=== PATIENT | female | born 1930 | race Caucasian/White ===

== ENCOUNTER → 2016-07-25 | Outpatient (CLI) | payer BC ==
[~2016-07-25] MED LIST: ACET1TAB84 PO; AMOX1TAB43 PO; APR50 PO; CALC-393 PO; CALCTAB5 PO; DOCU100C31 PO; ERGO1CAP35 PO; FERR325T5 PO; FURO-85 PO; HMLI SC; INSDGI SC; INSU100I2 SC; LEVO125T4 PO; LEVO175T3 PO; LSX80 PO; MELA3CAP PO; METO-551 PO; MRLP17X; MULT-190 PO; NRV5 PO; OMEG10007 PO; OMEP20CA9 PO; POTA10CA28 PO; SENN8.6T15 PO; SERT50TA PO; SIMV40TA2 PO; TRAM-10 PO; XRL15 PO; ZLF/50 PO; levoxyl PO
== END | disposition home or self-care (01) ==
LOC: C.LABSPEC 16:43
PROVIDERS: ATTEND Internal Medicine
DX: B99.9 Unspecified infectious disease (principal)

== ENCOUNTER → 2016-08-13 | Outpatient (CLI) | payer BC | END | disposition home or self-care (01) | LOC: C.LABSPEC 08:24 | PROVIDERS: ATTEND Internal Medicine | DX: E04.2 Nontoxic multinodular goiter (principal) ==

== ENCOUNTER → 2016-09-01 | Outpatient (CLI) | payer BC ==
[2016-09-01 17:26] LABS: BASO % 0.7 %; BASO ABS # 0.07 K/uL (0-0.2); COMPLETE YES; EOS % 0.6 %; HEMATOCRIT 29.9 % (37-47); IG% 0.2 %; LYMPH % 10.7 %; LYMPH ABS # 1.02 K/uL (1.2-3.4); MEAN CORPUSCULAR HEMOGLOBIN 25.3 pg (25-34); MEAN CORPUSCULAR HGB CONC 30.1 g/dl (32-36); MEAN PLATELET VOLUME 9.7 fL (7.4-10.4); MONO % 8.5 %; NEUT % 79.3 %; PLATELET COUNT 352 K/uL (130-400); RED BLOOD COUNT 3.56 M/uL (4.2-5.4); WHITE BLOOD COUNT 9.51 K/uL (4.8-10.8)
[2016-09-01 17:39] LABS: INR 1.1 (0.9-1.1); PROTHROMBIN TIME (PATIENT) 11.6 SECONDS (9.0-12.0)
[2016-09-01 17:48] LABS: ALT/SGPT 14 U/L (12-78); BLOOD UREA NITROGEN 21 mg/dl (7-18); BUN/CREATININE RATIO 14.2 (10-20); CALCIUM 8.4 mg/dl (8.5-10.1); CARBON DIOXIDE 26 mmol/L (21-32); CHLORIDE 104 mmol/L (98-107); GLUCOSE 163 mg/dl (70-99); POTASSIUM 4.5 mmol/L (3.5-5.1); SODIUM 140 mmol/L (136-145)
[2016-09-01 17:56] LABS: ALB/GLOB RATIO 0.6 (0.9-2); ALKALINE PHOSPHATASE 81 U/L (45-117); AST/SGOT 16 U/L (15-37); FERRITIN 57.5 ng/ml (8.0-388.0); TOTAL IRON BINDING CAPACITY 249 mcg/dl (250-450)
== END | disposition home or self-care (01) ==
LOC: C.LABBFT 12:37
PROVIDERS: ATTEND Internal Medicine Nephrology
DX: I48.91 Unspecified atrial fibrillation (principal); I12.9 Hypertensive chronic kidney disease with stage 1 through stage 4 chronic kidney disease, or unspecified chronic kidney disease; K21.9 Gastro-esophageal reflux disease without esophagitis; D64.9 Anemia, unspecified; R60.9 Edema, unspecified; N18.3 Chronic kidney disease, stage 3 (moderate); E55.9 Vitamin D deficiency, unspecified; E04.2 Nontoxic multinodular goiter; R53.83 Other fatigue

== ENCOUNTER → 2016-09-02 | Outpatient (CLI) | payer BC ==
--- NOTE | 2016-09-12 13:38 | CODING QUERY NO DIAGNOSIS ---
TREATMENT RENDERED WITHOUT A DIAGNOSIS To promote full compliance with coding requirements relating to patient care, physician participation is requested in all cases of heel lift gouger uncertainty. Please assist us with providing a diagnosis/symptom for the test(s) below: A diagnosis/symptom was not documented on your Order. A valid diagnosis/symptom is required to bill all insurances. Please remember that we are unable to code a diagnosis of rule out, probable, possible, questionable, or suspected. Tests that require a diagnosis: * URINE CULTURE CLEAN CATCH DIAGNOSIS: Provider Signature: Date: Thank you Mayte Ward [facility] Information Management Once completed, please kindly fax back to [phone] For questions please call [phone]
== END | disposition home or self-care (01) ==
LOC: C.LABSPEC 14:39
PROVIDERS: ATTEND Internal Medicine
DX: R53.83 Other fatigue (principal)

== ENCOUNTER 2016-09-03 13:31 | Inpatient (IN) | payer BC, OTHER ==
[~2016-09-03] VITALS: Ht 167.6 cm; Wt 119.7 kg
[~2016-09-03 13:31] MED LIST changes: -AMOX1TAB43 PO; -CALC-393 PO; -INSU100I2 SC; -LEVO175T3 PO; -LSX80 PO; -NRV5 PO; -POTA10CA28 PO; -ZLF/50 PO; -levoxyl PO
--- NOTE | 2016-09-03 14:49 | DIAGNOSTIC IMAGING REPORT ---
SINGLE VIEW CHEST CLINICAL HISTORY: Generalized weakness. FINDINGS: An AP, portable, upright chest radiograph is compared to study dated 03/23/2016 and correlated with chest CT dated 06/03/2016. The examination is degraded by portable technique, large body habitus, and patient rotation. The heart is enlarged and there is atherosclerotic calcification of the thoracic aorta. The pulmonary vasculature is noncongested. There is a left pleural effusion and bibasilar consolidation. The upper lobes appear Clear. No pneumothorax is seen. The skeletal structures are osteopenic. The bony thorax is grossly intact. IMPRESSION: 1. Cardiomegaly without radiographic evidence of congestive failure. 2. There is a left pleural effusion and bibasilar consolidation. Although this could represent atelectasis, correlate clinically for evidence of pneumonia/aspiration pneumonitis. Radiographic follow-up to resolution is recommended. Electronically signed by: Vince Calderon M.D. 09/03/2016 2:47 PM Dictated Date/Time: 09/03/2016 2:46 PM
--- NOTE | 2016-09-03 14:59 | EMERGENCY ROOM VISIT NOTE ---
History First contact with patient: 14:11 Chief Complaint: WEAKNESS Stated Complaint: WEAKNESS Nursing Triage Summary: patient to ED via ALS from [facility], per staff patient has been weaker than normal. Patient denies complaints at time of triage. History of Present Illness The patient is a 86 year old female who last March was admitted for a stroke from a fib, received tPA, and is on Xarelto. She lives in the Assisted living section of [facility]. The patient reports feeling fine and isn't sure why she is here. On discussion with the staff at [facility] (Phone #[phone], [facility]) they report she is usually very independent but has had a decline since yesterday. She was apparently very sleepy, taking longer naps than usual, and more confused. She was apparently struggling to find her ID card which normally she can do quickly. Today she was a full assist to get dressed, had episodes of staring off into space, and confusion. They asked her to give a urine sample for them but she forgot. Her appetite has also decreased. The patient reports she had a bowel movement this morning. Denies any change to her stool color. She denies any current pain. She is oriented to person and place but not time. Review of Systems See HPI for pertinent positives & negatives. A total of 10 systems reviewed and were otherwise negative. Past Medical/Surgical History Medical Problems: (1) Acute post-hemorrhagic anemia (2) Atrial fibrillation (3) Cellulitis of both lower extremities (4) Coumadin toxicity (5) CVA (cerebral vascular accident) (6) Diabetes (7) Mediastinal adenopathy (8) Pneumonia Family History Noncontributory secondary to age Social History Smoking Status: Never Smoker Drug Use: none Marital Status: Housing Status: assisted living Occupation Status: retired Current/Historical Medications Scheduled Calcium Carbonate (Calcium), 1 TAB PO DAILY Docusate Sodium (Docusate Sodium), 1 CAP PO BID Ferrous Sulfate (Ferrous Sulfate), 325 MG PO QPM Fish Oil ([place]-3), 2 TAB PO BID Hydralazine HCl (Hydralazine HCl), 50 MG PO QID Insulin Glargine (Lantus), 8 UNIT SC QPM Insulin Lispro (Human) (Humalog Kwikpen), 10 UNIT SC BID Levothyroxine Sodium (Levothyroxine Sodium), 175 MCG PO QAM Metoprolol Tartrate (Lopressor), 100 MG PO BID Ocuvite Preservision (Ocuvite Preservision), 1 TAB PO BID Omeprazole (Prilosec), 20 MG PO DAILY Sennosides-Docusate Sodium (Sennalax-S), 1 TAB PO DAILY Sertraline HCl (Sertraline HCl), 1 TAB PO DAILY Simvastatin (Zocor), 40 MG PO QPM Tramadol (Ultram), 50 MG PO Q6HPRN Scheduled PRN Acetaminophen (Tylenol Arthritis Ext Rel), 650 MG PO Q8H PRN for Pain Miscellaneous Medications Polyethylene (Miralax) Allergies Coded Allergies: Codeine (Verified Adverse Reaction, Mild, nausea, 09/03/16) Hydralazine (Verified Adverse Reaction, Mild, leg cramps currently taking a lower dose without problems, 09/03/16) Oxycodone (Verified Adverse Reaction, Mild, nausea, 09/03/16) Statins (Verified Adverse Reaction, Mild, leg cramps lack of interest, ) takes simvastatin now Physical Exam Vital Signs Date Time Temp Pulse Resp B/P Pulse Ox O2 Delivery O2 Flow Rate FiO2 09/03/16 19:02 56 22 133/107 98 Room Air 09/03/16 18:01 68 24 09/03/16 17:59 180/91 09/03/16 17:51 191/99 09/03/16 17:40 52 09/03/16 17:31 54 27 09/03/16 17:29 184/109 09/03/16 17:01 49 17 95 09/03/16 16:58 186/81 09/03/16 16:41 73 20 188/97 95 Room Air 09/03/16 16:32 188/97 09/03/16 16:31 60 22 09/03/16 15:01 63 23 94 09/03/16 14:43 61 20 159/94 96 Room Air 70 174/73 09/03/16 14:43 174/73 09/03/16 14:42 159/94 09/03/16 14:42 94 Room Air 09/03/16 14:31 62 18 95 09/03/16 14:29 154/72 09/03/16 14:01 63 20 93 09/03/16 13:59 143/67 09/03/16 13:41 68 09/03/16 13:33 36.5 67 20 133/69 98 Room Air 09/03/16 13:33 133/69 Physical Exam GENERAL: Awake, alert, well appearing, no distress, somnolent. HENT: Normocephalic, atraumatic. EYES: PERRL. Normal conjunctiva. Sclera non-icteric. Fundi normal. EOMI NECK: Supple. No nuchal rigidity. FROM. RESPIRATORY: CTA CARDIAC: RRR. Extremities warm and well perfused. ABDOMEN: Soft, distended. No tenderness to palpation. No rebound or guarding. No masses. MUSCULOSKELETAL: Unremarkable. EXTREMITIES: Bilateral leg edema, covered in edward bandage, with some notable blisters on right leg. Erythematous to below knee bilaterally. Nontender to palpation. NEURO: Oriented to person and place but not time. No sensory or motor deficits noted. Gait normal. Speech normal. Cranial nerves two through 12 intact. No pronator drift. Negative Romberg. Normal rapid alternating movements. SKIN: Erythema below knee to above ankles bilaterally. LYMPH: No adenopathy. Medical Decision & Procedures Laboratory Results 09/03/16 15:31 Red Blood Count 3.88, Mean Corpuscular Volume 83.2, Mean Corpuscular Hemoglobin 25.8, Mean Corpuscular Hemoglobin Concent 31.0, Mean Platelet Volume 9.5, Neutrophils (%) (Auto) 79.2, Lymphocytes (%) (Auto) 11.1, Monocytes (%) (Auto) 8.4, Eosinophils (%) (Auto) 0.7, Basophils (%) (Auto) 0.4, Neutrophils # (Auto) 7.69, Lymphocytes # (Auto) 1.08, Monocytes # (Auto) 0.82, Eosinophils # (Auto) 0.07, Basophils # (Auto) 0.04 09/03/16 15:31 Test 09/03/16 15:31 White Blood Count 9.72 K/uL (4.8-10.8) Red Blood Count 3.88 M/uL (4.2-5.4) Hemoglobin 10.0 g/dL (12.0-16.0) Hematocrit 32.3 % (37-47) Mean Corpuscular Volume 83.2 fL (80-100) Mean Corpuscular Hemoglobin 25.8 pg (25-34) Mean Corpuscular Hemoglobin Concent 31.0 g/dl (32-36) Platelet Count 293 K/uL (130-400) Mean Platelet Volume 9.5 fL (7.4-10.4) Neutrophils (%) (Auto) 79.2 % Lymphocytes (%) (Auto) 11.1 % Monocytes (%) (Auto) 8.4 % Eosinophils (%) (Auto) 0.7 % Basophils (%) (Auto) 0.4 % Neutrophils # (Auto) 7.69 K/uL (1.4-6.5) Lymphocytes # (Auto) 1.08 K/uL (1.2-3.4) Monocytes # (Auto) 0.82 K/uL (0.11-0.59) Eosinophils # (Auto) 0.07 K/uL (0-0.5) Basophils # (Auto) 0.04 K/uL (0-0.2) RDW Standard Deviation 54.3 fL (36.4-46.3) RDW Coefficient of Variation 17.9 % (11.5-14.5) Immature Granulocyte % (Auto) 0.2 % Immature Granulocyte # (Auto) 0.02 K/uL (0.00-0.02) Prothrombin Time 12.0 SECONDS (9.0-12.0) Prothromb Time International Ratio 1.1 (0.9-1.1) Anion Gap 10.0 mmol/L (3-11) Est Creatinine Clear Calc Drug Dose 42.4 ml/min Estimated GFR () 43.6 Estimated GFR (Non- 37.6 BUN/Creatinine Ratio 14.3 (10-20) Calcium Level 8.2 mg/dl (8.5-10.1) Magnesium Level 1.7 mg/dl (1.8-2.4) Total Bilirubin 0.4 mg/dl (0.2-1) Aspartate Amino Transf (AST/SGOT) 17 U/L (15-37) Alanine Aminotransferase (ALT/SGPT) 13 U/L (12-78) Alkaline Phosphatase 77 U/L (45-117) Troponin I 0.023 ng/ml (0-0.045) Total Protein 6.3 gm/dl (6.4-8.2) Albumin 2.3 gm/dl (3.4-5.0) Globulin 4.0 gm/dl (2.5-4.0) Albumin/Globulin Ratio 0.6 (0.9-2) ECG Indication: altered mental status Rhythm: atrial flutter (59 bpm) Findings: other (variable block) ED Course 2:10: I evaluated the patient in room C12A. 2:18: I ordered a CBC, CMP, Troponin, EKG, and CXR. 2:52: I discussed the case with Dr Juarez. We ordered a CT head. 5:21: The [place] [facility] - Dr. Alfaro will evaluate the patient. Medical Decision 86 yo F with weakness and altered mental status - differential includes UTI, cellulitis, sepsis, pneumonia, and delirium. The patient had an IV placed and labs drawn. She was found to have a left sided effusion on a portable CXR so this was repeated with a two view CXR. Her Hb level was 10, which is higher than her usual lifetime hemoglobin level. Her creatinine level of 1.30 is similar to baseline. I attempted to get a urinalysis but this was not obtained. I ordered a urine catheterization, this is still pending. I called her care home and from their opinion the patient has had a steep decline in the last two days. They did not know her code status. At this point, it seems appropriate for the patient to be admitted for further workup. Impression Primary Impression: Cellulitis of both lower extremities Additional Impression: Pneumonia Departure Information Dispostion Being Evaluated By Hospitalist Condition GOOD [facility] Patient Instructions My [facility] Resident Tracking Resident Involvement: Resident Care Provided Care Provided: Adult ED Problem Qualifiers
[2016-09-03] MEDS ORDERED: CALC-393 PO (15:23)
[2016-09-03] MEDS ORDERED: INSDGI SC (15:23)
[2016-09-03] MEDS ORDERED: INSU100I2 SC (15:23)
[2016-09-03] MEDS ORDERED: ZLF/50 PO (15:24)
[2016-09-03] MEDS ORDERED: LEVO175T3 PO (15:24)
[2016-09-03] MEDS ORDERED: levoxyl PO (15:29)
--- NOTE | 2016-09-03 15:29 | DIAGNOSTIC IMAGING REPORT ---
CT SCAN OF THE BRAIN WITHOUT IV CONTRAST CLINICAL HISTORY: Generalized weakness. COMPARISON STUDY: CT of the brain dated 03/23/2016. MRI of the brain dated 03/24/2016. TECHNIQUE: Unenhanced axial CT scan of the brain is performed from the vertex to the skull base. CT DOSE: 537.48 mGy.cm FINDINGS: Brain parenchyma: There are age-related involutional changes noting moderate patchy subcortical and periventricular microangiopathic change. There is a septal malacia from a chronic right frontal infarct. There is no hemorrhage, mass effect, or evidence of acute territorial ischemia by CT criteria. Cruz-white matter is preserved. No extra-axial fluid collection is seen. Ventricles, sulci, cisterns: Prominent secondary to involutional change. Intracranial vasculature: There is atherosclerotic calcification of the cavernous carotid and vertebral arteries. Calvarium: Unremarkable. Sinuses and mastoids: The visualized paranasal sinuses are clear. The mastoid air cells are well pneumatized. Orbits: The bony orbits are grossly intact. There are bilateral ocular lens implants. IMPRESSION: Senescent changes and chronic right frontal infarct as above. There is no hemorrhage, mass effect, or evidence of acute territorial ischemia by CT criteria. Electronically signed by: Vince Calderon M.D. 09/03/2016 3:28 PM Dictated Date/Time: 09/03/2016 3:25 PM
[2016-09-03 15:41] LABS: BASO % 0.4 %; BASO ABS # 0.04 K/uL (0-0.2); COMPLETE YES; EOS % 0.7 %; HEMATOCRIT 32.3 % (37-47); IG% 0.2 %; LYMPH % 11.1 %; LYMPH ABS # 1.08 K/uL (1.2-3.4); MEAN CELL VOLUME 83.2 fL (80-100); MEAN CORPUSCULAR HEMOGLOBIN 25.8 pg (25-34); MEAN PLATELET VOLUME 9.5 fL (7.4-10.4); MONO % 8.4 %; NEUT % 79.2 %; PLATELET COUNT 293 K/uL (130-400); RED BLOOD COUNT 3.88 M/uL (4.2-5.4); WHITE BLOOD COUNT 9.72 K/uL (4.8-10.8)
[2016-09-03 15:49] LABS: INR 1.1 (0.9-1.1)
[2016-09-03 15:59] LABS: BUN/CREATININE RATIO 14.3 (10-20); CALCIUM 8.2 mg/dl (8.5-10.1); CREATININE 1.3 mg/dl (0.60-1.20); MAGNESIUM 1.7 mg/dl (1.8-2.4); POTASSIUM 4.4 mmol/L (3.5-5.1)
[2016-09-03 16:02] LABS: ALB/GLOB RATIO 0.6 (0.9-2)
--- NOTE | 2016-09-03 16:41 | DIAGNOSTIC IMAGING REPORT ---
CHEST 2 VIEWS ROUTINE CLINICAL HISTORY: L base ?aspiration vs pneumonia pneumonia COMPARISON STUDY: 09/03/2016 2:29 PM FINDINGS: Moderate cardiomegaly. Prominence pulmonary vasculature. Slightly progressive infiltrative/effusion-type change left base. IMPRESSION: Slightly progressive effusion/infiltrative change left base. Mild stable cardia megaly. Pulmonary vascular congestion. Electronically signed by: Abhijeet Archer M.D. 09/03/2016 4:39 PM Dictated Date/Time: 09/03/2016 4:38 PM
[2016-09-03] MEDS ORDERED: GLUCOSE 40% GEL 15 GM TUBE PO PRN (18:30)
[2016-09-03] MEDS ORDERED: TRAMADOL HCL 50 MG TAB PO PRN (18:30)
[2016-09-03] MEDS ORDERED: GLUCOSE 10 TABS/TUBE PO PRN (18:30)
[2016-09-03] MEDS ORDERED: DEXTROSE 50% 50 ML SYR IV PRN (18:30)
[2016-09-03] MEDS ORDERED: ZOLPIDEM TARTRATE 5 MG TAB PO PRN (18:30)
[2016-09-03] MEDS ORDERED: ACETAMINOPHEN 325 MG TAB PO PRN (18:30)
[2016-09-03] MEDS ORDERED: ONDANSETRON INJ 2 MG/ML 2 ML VIAL IV PRN (18:30)
[2016-09-03] MEDS ORDERED: GLUCAGON FOR INJ 1 MG VIAL SQ PRN (18:30)
[2016-09-03] MEDS ORDERED: VANCOMYCIN INJ 1,000 MG in SODIUM CHLORIDE 0.9% 250ML 250 ML IV STA (18:32)
[2016-09-03] MEDS ORDERED: PIPERACILL/TAZOBAC IV 4.5 GM in DEXTROSE 5% 100ML IV ONE (18:45)
[2016-09-03] MEDS ORDERED: PIPERACILLIN/TAZOBACTAM 4.5 GM/100ML D5W IV SCH (18:45)
--- NOTE | 2016-09-03 18:49 | Medical Student: [facility] ---
Med Student History & Physical Date & Time of Service: Sep 03, 2016 at 18:01 Chief Complaint: Weakness Primary Care Physician: Irineo Pena,Personal Care,Sera History of Present Illness Source: patient, family, group home 86y/o female living at [facility] presents with weakness and confusion that began yesterday. Prior to yesterday, the patient was very independent according to the assisted living staff. However, she needed a full assist to get dressed this morning and has been sleeping more as well as staring out into space. The patient's family also notices a difference, noting that the patient is having increased difficulty concentrating and difficulty moving around. The patient also has had a decreased appetite. Currently, the patient denies having any symptoms, including chest pain, palpitations, shortness of breath, abdominal pain, nausea, vomiting, constipation, diarrhea, and change in stool color. The patient has a history of stroke in February of 2016 presents with . Family states that following the stroke, she did not do much of her rehabilitation, and has subsequently gained a significant amount of weight. The patient takes Lasix for lower extremity edema. According to family, the assisted living facility was supposed to get a urine sample yesterday, but it was never collected. Past Medical/Surgical History Medical Problems: (1) CVA 2. A-Fib 3. Coumadin toxicity 4. post hemorrhagic anemia 5. Diabetes 6. Mediastinal Adenopathy 7. Hypertension Surgical History: 1. Knee replacement Social History Smoking Status: Never Smoker Alcohol Use: none Drug Use: none Marital Status: Housing status: assisted living Occupational Status: retired Immunizations History of Influenza Vaccine: N/A History of Tetanus Vaccine?: Unknown History of Pneumococcal: Yes History of Hepatitis B Vaccine: Unknown Allergies Coded Allergies: Codeine (Verified Adverse Reaction, Mild, nausea, 09/03/16) Hydralazine (Verified Adverse Reaction, Mild, leg cramps currently taking a lower dose without problems, 09/03/16) Oxycodone (Verified Adverse Reaction, Mild, nausea, 09/03/16) Statins (Verified Adverse Reaction, Mild, leg cramps lack of interest, ) takes simvastatin now Medications Acetaminophen (Tylenol Arthritis Ext Rel), 650 MG PO Q8H PRN for Pain Calcium Carbonate (Calcium), 1 TAB PO DAILY Docusate Sodium (Docusate Sodium), 1 CAP PO BID Ferrous Sulfate (Ferrous Sulfate), 325 MG PO QPM Fish Oil ([place]-3), 2 TAB PO BID Hydralazine HCl (Hydralazine HCl), 50 MG PO QID Insulin Glargine (Lantus), 8 UNIT SC QPM Insulin Lispro (Human) (Humalog Kwikpen), 10 UNIT SC BID Levothyroxine Sodium (Levothyroxine Sodium), 175 MCG PO QAM Metoprolol Tartrate (Lopressor), 100 MG PO BID Ocuvite Preservision (Ocuvite Preservision), 1 TAB PO BID Omeprazole (Prilosec), 20 MG PO DAILY Polyethylene (Miralax) Sennosides-Docusate Sodium (Sennalax-S), 1 TAB PO DAILY Sertraline HCl (Sertraline HCl), 1 TAB PO DAILY Simvastatin (Zocor), 40 MG PO QPM Tramadol (Ultram), 50 MG PO Q6HPRN Review of Systems Constitutional: + chills, No fever, No weakness, No weight loss Eyes: No discharge, No redness, No worsening of vision ENT: No hearing loss, No sore throat Respiratory: No cough, No dyspnea on exertion, No shortness of breath, No sputum, No wheezing Cardiovascular: + edema, No chest pain, No palpitations Abdomen: No constipation, No diarrhea, No nausea, No pain, No vomiting Musculoskeletal: No calf pain, No joint pain, No muscle pain Neurologic: No numbness/tingling, No paralysis Psychiatric: No anxiety, No depression symptoms Integumentary: No itch, No rash Physical Exam Vital Signs (24 Hours) Date Time Temp Pulse Resp B/P Pulse Ox O2 Delivery O2 Flow Rate FiO2 09/03/16 17:40 52 09/03/16 16:41 73 20 188/97 95 Room Air 09/03/16 14:43 61 20 159/94 96 Room Air 70 174/73 09/03/16 14:42 94 Room Air 09/03/16 13:41 68 09/03/16 13:33 36.5 67 20 133/69 98 Room Air General Appearance: WD/WN, no apparent distress Head: normocephalic, atraumatic Eyes: normal inspection, EOMI ENT: normal ENT inspection, hearing grossly normal Respiratory/Chest: chest non-tender, lungs clear, no respiratory distress, + decreased breath sounds Cardiovascular: regular rate, rhythm, no gallop, normal peripheral pulses, + systolic murmur (3/6 CORINNE) Abdomen/GI: normal bowel sounds, non tender, soft Extremities/Musculoskelatal: + pertinent finding (2+ pedal edema extending up the lower legs, erythema and increased warmth bilateral lower legs) Neurologic/Psych: ecological modeler II-XII nml as tested, no motor/sensory deficits, alert, normal mood/affect, + pertinent finding (oriented to person but not place or time) Skin: no rash Diagnostics Laboratory Results Results Past 24 Hours Test 09/03/16 15:31 Range/Units White Blood Count 9.72 4.8-10.8 K/uL Red Blood Count 3.88 4.2-5.4 M/uL Hemoglobin 10.0 12.0-16.0 g/dL Hematocrit 32.3 37-47 % Mean Corpuscular Volume 83.2 80-100 fL Mean Corpuscular Hemoglobin 25.8 25-34 pg Mean Corpuscular Hemoglobin Concent 31.0 32-36 g/dl Platelet Count 293 130-400 K/uL Mean Platelet Volume 9.5 7.4-10.4 fL Neutrophils (%) (Auto) 79.2 % Lymphocytes (%) (Auto) 11.1 % Monocytes (%) (Auto) 8.4 % Eosinophils (%) (Auto) 0.7 % Basophils (%) (Auto) 0.4 % Neutrophils # (Auto) 7.69 1.4-6.5 K/uL Lymphocytes # (Auto) 1.08 1.2-3.4 K/uL Monocytes # (Auto) 0.82 0.11-0.59 K/uL Eosinophils # (Auto) 0.07 0-0.5 K/uL Basophils # (Auto) 0.04 0-0.2 K/uL RDW Standard Deviation 54.3 36.4-46.3 fL RDW Coefficient of Variation 17.9 11.5-14.5 % Immature Granulocyte % (Auto) 0.2 % Immature Granulocyte # (Auto) 0.02 0.00-0.02 K/uL Prothrombin Time 12.0 9.0-12.0 SECONDS Prothromb Time International Ratio 1.1 0.9-1.1 Sodium Level 138 136-145 mmol/L Potassium Level 4.4 3.5-5.1 mmol/L Chloride Level 103 98-107 mmol/L Carbon Dioxide Level 25 21-32 mmol/L Anion Gap 10.0 3-11 mmol/L Blood Urea Nitrogen 19 7-18 mg/dl Creatinine 1.30 0.60-1.20 mg/dl Est Creatinine Clear Calc Drug Dose 42.4 ml/min Estimated GFR () 43.6 Estimated GFR (Non- 37.6 BUN/Creatinine Ratio 14.3 10-20 Random Glucose 162 70-99 mg/dl Calcium Level 8.2 8.5-10.1 mg/dl Magnesium Level 1.7 1.8-2.4 mg/dl Total Bilirubin 0.4 0.2-1 mg/dl Aspartate Amino Transf (AST/SGOT) 17 15-37 U/L Alanine Aminotransferase (ALT/SGPT) 13 12-78 U/L Alkaline Phosphatase 77 45-117 U/L Troponin I 0.023 0-0.045 ng/ml Total Protein 6.3 6.4-8.2 gm/dl Albumin 2.3 3.4-5.0 gm/dl Globulin 4.0 2.5-4.0 gm/dl Albumin/Globulin Ratio 0.6 0.9-2 Diagnostic Radiology REPEAT CXR CLINICAL HISTORY: L base ?aspiration vs pneumonia pneumonia COMPARISON STUDY: 09/03/2016 2:29 PM FINDINGS: Moderate cardiomegaly. Prominence pulmonary vasculature. Slightly progressive infiltrative/effusion-type change left base. IMPRESSION: Slightly progressive effusion/infiltrative change left base. Mild stable cardia megaly. Pulmonary vascular congestion. INITIAL CXR IMPRESSION: 1. Cardiomegaly without radiographic evidence of congestive failure. 2. There is a left pleural effusion and bibasilar consolidation. Although this could represent atelectasis, correlate clinically for evidence of pneumonia/aspiration pneumonitis. Radiographic follow-up to resolution is recommended. HEAD CT IMPRESSION: Senescent changes and chronic right frontal infarct as above. There is no hemorrhage, mass effect, or evidence of acute territorial ischemia by CT criteria. EKG Atrial Flutter with variable A-V block at 59bpm Impression Assessment and Plan 86y/o female in assisted living with weakness and increased confusion for two days with lower leg cellulitis and potential PNA on CXR, urinalysis pending. The patient's recent declining status is likely due to an infection and multiple sources have been potentially indicated. Cellulitis and PNA- Administer Vancomycin IV and Zosyn IV to broadly cover infection. Continue to monitor WBC and other labs. Monitor cellulitis. Eventually repeat CXR. Patient will be catheterized to obtain a urine sample to look for potential UTI. History of CVA due to Atrial fibrillation- Administer Rivaroxaban 15mg PO daily. Hypertension- Administer Metoprolol Tartrate 100mg PO BID, Hydralazine HCl 50mg PO QID, Furosemide 1 TAB PO BID. Diabetes- Administer Insulin glargine 8 Units SC QPM and Lispro 10 UNITS SC BID. Continue to monitor blood glucose. Hypothyroid- Administer Levothyroxine Sodium 175mcg PO QAM. Constipation- Administer Docusate Sodium 1 CAP PO BID. Reflux- Administer Omeprazole 20mg PO daily. Hyperlipidemia- Administer Simvastatin 40mg PO QPM. Vitamin Supplementation- Administer Calcium Carbonate 1 TAB PO Daily, Ferrous Sulfate 325mg PO QPM, Fish Oil 2 TAB PO BID, Vit D.
[2016-09-03] MEDS ORDERED: PIPERACILL/TAZOBAC CONSULT ACTIVE PRN (19:00)
[2016-09-03] MEDS ORDERED: VANCOMYCIN CONSULT ACTIVE PRN (19:00)
[2016-09-03] MEDS ORDERED: VANCOMYCIN INJ 2,400 MG in SODIUM CHLORIDE 0.9% 500ML 500 ML IV SCH (19:30)
--- NOTE | 2016-09-03 19:46 | EMERGENCY ROOM VISIT NOTE ---
History Report prepared by Alexsandra: Tracy Augustin Under the Supervision of: Dr. Riley Juarez M.D. First contact with patient: 14:11 Chief Complaint: WEAKNESS Stated Complaint: WEAKNESS Nursing Triage Summary: patient to ED via ALS from [facility], per staff patient has been weaker than normal. Patient denies complaints at time of triage. History of Present Illness The patient is a 86 year old female who presents to the Emergency Room from [facility] with complaints of worsening weakness since yesterday. Per the nursing staff at [facility], the patient is typically independent. Yesterday, they noticed that the patient was taking longer naps than usual, and appeared more confused while awake. Today, the patient required full assist to get dressed. The patient complains of a chest pain that radiates across her chest but is unable to describe it or define when it occurs. HPI limited d/t: prior stroke. Source of History: patient, nursing staff History Limited By: other (prior stroke) Onset: Yesterday Position: other (Global ) Timing: worsening Associated Symptoms: + chest pain Review of Systems See HPI for pertinent positives & negatives. A total of 10 systems reviewed and were otherwise negative. Past Medical & Surgical Medical Problems: (1) Acute post-hemorrhagic anemia (2) Atrial fibrillation (3) Cellulitis of both lower extremities (4) Coumadin toxicity (5) CVA (cerebral vascular accident) (6) Diabetes (7) Mediastinal adenopathy (8) Pneumonia Family History Noncontributory secondary to age Social History Smoking Status: Never Smoker Drug Use: none Marital Status: Housing Status: assisted living Occupation Status: retired Current/Historical Medications Scheduled Calcium Carbonate (Calcium), 1 TAB PO DAILY Docusate Sodium (Docusate Sodium), 1 CAP PO BID Ferrous Sulfate (Ferrous Sulfate), 325 MG PO QPM Fish Oil ([place]-3), 2 TAB PO BID Hydralazine HCl (Hydralazine HCl), 50 MG PO QID Insulin Glargine (Lantus), 8 UNIT SC QPM Insulin Lispro (Human) (Humalog Kwikpen), 10 UNIT SC BID Levothyroxine Sodium (Levothyroxine Sodium), 175 MCG PO QAM Metoprolol Tartrate (Lopressor), 100 MG PO BID Ocuvite Preservision (Ocuvite Preservision), 1 TAB PO BID Omeprazole (Prilosec), 20 MG PO DAILY Sennosides-Docusate Sodium (Sennalax-S), 1 TAB PO DAILY Sertraline HCl (Sertraline HCl), 1 TAB PO DAILY Simvastatin (Zocor), 40 MG PO QPM Tramadol (Ultram), 50 MG PO Q6HPRN Scheduled PRN Acetaminophen (Tylenol Arthritis Ext Rel), 650 MG PO Q8H PRN for Pain Miscellaneous Medications Polyethylene (Miralax) Allergies Coded Allergies: Codeine (Verified Adverse Reaction, Mild, nausea, 09/03/16) Hydralazine (Verified Adverse Reaction, Mild, leg cramps currently taking a lower dose without problems, 09/03/16) Oxycodone (Verified Adverse Reaction, Mild, nausea, 09/03/16) Statins (Verified Adverse Reaction, Mild, leg cramps lack of interest, ) takes simvastatin now Physical Exam Vital Signs Date Time Temp Pulse Resp B/P Pulse Ox O2 Delivery O2 Flow Rate FiO2 09/03/16 19:02 56 22 133/107 98 Room Air 09/03/16 18:01 68 24 09/03/16 17:59 180/91 09/03/16 17:51 191/99 09/03/16 17:40 52 09/03/16 17:31 54 27 09/03/16 17:29 184/109 09/03/16 17:01 49 17 95 09/03/16 16:58 186/81 09/03/16 16:41 73 20 188/97 95 Room Air 09/03/16 16:32 188/97 09/03/16 16:31 60 22 09/03/16 15:01 63 23 94 09/03/16 14:43 61 20 159/94 96 Room Air 70 174/73 09/03/16 14:43 174/73 09/03/16 14:42 159/94 09/03/16 14:42 94 Room Air 09/03/16 14:31 62 18 95 09/03/16 14:29 154/72 09/03/16 14:01 63 20 93 09/03/16 13:59 143/67 09/03/16 13:41 68 09/03/16 13:33 36.5 67 20 133/69 98 Room Air 09/03/16 13:33 133/69 Physical Exam Constitutional: Vital signs reviewed. Eyes: Pupils are equal round reactive to light. Conjunctiva are noninjected. ENT: Pharynx is clear without erythema or exudate. Mucous membranes are moist. Neck supple without meningeal signs. Respiratory: Clear to auscultation bilaterally. Breath sounds are equal bilaterally. Cardiovascular: Regular rate and rhythm. No rubs or gallops. GI: Soft, nondistended and nontender. Bowel sounds are present. Musculoskeletal: Bilateral lower extremity edema with diffuse erythema in calves. Slight increased warmth, nontender. Integumentary: As above. Neurological: Slow to respond to questions. Oriented to place and person only. Psychiatric: Unable to assess. Medical Decision & Procedures ER Provider Diagnostic Interpretation: X-ray results as stated below per interpretation by me and the radiologist: Other radiology results as stated below per my review and the radiologist's interpretation: SINGLE VIEW CHEST CLINICAL HISTORY: Generalized weakness. FINDINGS: An AP, portable, upright chest radiograph is compared to study dated 03/23/2016 and correlated with chest CT dated 06/03/2016. The examination is degraded by portable technique, large body habitus, and patient rotation. The heart is enlarged and there is atherosclerotic calcification of the thoracic aorta. The pulmonary vasculature is noncongested. There is a left pleural effusion and bibasilar consolidation. The upper lobes appear Clear. No pneumothorax is seen. The skeletal structures are osteopenic. The bony thorax is grossly intact. IMPRESSION: 1. Cardiomegaly without radiographic evidence of congestive failure. 2. There is a left pleural effusion and bibasilar consolidation. Although this could represent atelectasis, correlate clinically for evidence of pneumonia/aspiration pneumonitis. Radiographic follow-up to resolution is recommended. Electronically signed by: Vince Calderon M.D. 09/03/2016 2:47 PM Dictated Date/Time: 09/03/2016 2:[address] SCAN OF THE BRAIN WITHOUT IV CONTRAST CLINICAL HISTORY: Generalized weakness. COMPARISON STUDY: CT of the brain dated 03/23/2016. MRI of the brain dated 03/24/2016. TECHNIQUE: Unenhanced axial CT scan of the brain is performed from the vertex to the skull base. CT DOSE: 537.48 mGy.cm FINDINGS: Brain parenchyma: There are age-related involutional changes noting moderate patchy subcortical and periventricular microangiopathic change. There is a septal malacia from a chronic right frontal infarct. There is no hemorrhage, mass effect, or evidence of acute territorial ischemia by CT criteria. Cruz-white matter is preserved. No extra-axial fluid collection is seen. Ventricles, sulci, cisterns: Prominent secondary to involutional change. Intracranial vasculature: There is atherosclerotic calcification of the cavernous carotid and vertebral arteries. Calvarium: Unremarkable. Sinuses and mastoids: The visualized paranasal sinuses are clear. The mastoid air cells are well pneumatized. Orbits: The bony orbits are grossly intact. There are bilateral ocular lens implants. IMPRESSION: Senescent changes and chronic right frontal infarct as above. There is no hemorrhage, mass effect, or evidence of acute territorial ischemia by CT criteria. Electronically signed by: Vince Calderon M.D. 09/03/2016 3:28 PM Dictated Date/Time: 09/03/2016 3:25 PM CHEST 2 VIEWS ROUTINE CLINICAL HISTORY: L base ?aspiration vs pneumonia pneumonia COMPARISON STUDY: 09/03/2016 2:29 PM FINDINGS: Moderate cardiomegaly. Prominence pulmonary vasculature. Slightly progressive infiltrative/effusion-type change left base. IMPRESSION: Slightly progressive effusion/infiltrative change left base. Mild stable cardia megaly. Pulmonary vascular congestion. Electronically signed by: Abhijeet Archer M.D. 09/03/2016 4:39 PM Dictated Date/Time: 09/03/2016 4:38 PM Laboratory Results 09/03/16 15:31 Red Blood Count 3.88, Mean Corpuscular Volume 83.2, Mean Corpuscular Hemoglobin 25.8, Mean Corpuscular Hemoglobin Concent 31.0, Mean Platelet Volume 9.5, Neutrophils (%) (Auto) 79.2, Lymphocytes (%) (Auto) 11.1, Monocytes (%) (Auto) 8.4, Eosinophils (%) (Auto) 0.7, Basophils (%) (Auto) 0.4, Neutrophils # (Auto) 7.69, Lymphocytes # (Auto) 1.08, Monocytes # (Auto) 0.82, Eosinophils # (Auto) 0.07, Basophils # (Auto) 0.04 09/03/16 15:31 Test 09/03/16 15:31 White Blood Count 9.72 K/uL (4.8-10.8) Red Blood Count 3.88 M/uL (4.2-5.4) Hemoglobin 10.0 g/dL (12.0-16.0) Hematocrit 32.3 % (37-47) Mean Corpuscular Volume 83.2 fL (80-100) Mean Corpuscular Hemoglobin 25.8 pg (25-34) Mean Corpuscular Hemoglobin Concent 31.0 g/dl (32-36) Platelet Count 293 K/uL (130-400) Mean Platelet Volume 9.5 fL (7.4-10.4) Neutrophils (%) (Auto) 79.2 % Lymphocytes (%) (Auto) 11.1 % Monocytes (%) (Auto) 8.4 % Eosinophils (%) (Auto) 0.7 % Basophils (%) (Auto) 0.4 % Neutrophils # (Auto) 7.69 K/uL (1.4-6.5) Lymphocytes # (Auto) 1.08 K/uL (1.2-3.4) Monocytes # (Auto) 0.82 K/uL (0.11-0.59) Eosinophils # (Auto) 0.07 K/uL (0-0.5) Basophils # (Auto) 0.04 K/uL (0-0.2) RDW Standard Deviation 54.3 fL (36.4-46.3) RDW Coefficient of Variation 17.9 % (11.5-14.5) Immature Granulocyte % (Auto) 0.2 % Immature Granulocyte # (Auto) 0.02 K/uL (0.00-0.02) Prothrombin Time 12.0 SECONDS (9.0-12.0) Prothromb Time International Ratio 1.1 (0.9-1.1) Anion Gap 10.0 mmol/L (3-11) Est Creatinine Clear Calc Drug Dose 42.4 ml/min Estimated GFR () 43.6 Estimated GFR (Non- 37.6 BUN/Creatinine Ratio 14.3 (10-20) Calcium Level 8.2 mg/dl (8.5-10.1) Magnesium Level 1.7 mg/dl (1.8-2.4) Total Bilirubin 0.4 mg/dl (0.2-1) Aspartate Amino Transf (AST/SGOT) 17 U/L (15-37) Alanine Aminotransferase (ALT/SGPT) 13 U/L (12-78) Alkaline Phosphatase 77 U/L (45-117) Troponin I 0.023 ng/ml (0-0.045) Total Protein 6.3 gm/dl (6.4-8.2) Albumin 2.3 gm/dl (3.4-5.0) Globulin 4.0 gm/dl (2.5-4.0) Albumin/Globulin Ratio 0.6 (0.9-2) Laboratory results as reviewed by me. ECG Indication: weakness Rate (beats per minute): 59 Rhythm: atrial flutter Findings: no acute ischemic change, other (Variable AV block ) ED Course 1530: The patient was evaluated in room A11. A complete history and physical exam was performed. 1715: Dr. Arzola (Resident) discussed the patient's case with Dr. Alfaro, who will evaluate the patient for further management and care. Medical Decision This is an 86-year-old female who presents with generalized weakness and chest pain. Differential diagnosis includes pneumonia, sepsis, UTI, anemia, metabolic derangement, DC. I did perform a limited focused review of portions of the patient's old chart on the electronic medical record. The patient was admitted for a CVA and atrial fibrillation in March of last year. I did evaluate the patient as noted above. I did obtain history from the patient as well as her son. He also obtained history from the assisted living facility. IV access was established. The patient was placed on a continuous facilities assistant. I did order and personally review the patient's 12-lead EKG and chest x-ray as described above. I did order and review the patient's blood work as noted in the electronic medical record. She is anemic. I did order a CT of the head. I did review the images myself as well as the radiology report as described above. The case was discussed with the hospitalist and supportive employment case manager for further evaluation in the hospital. Resident Physician Supervision Note: I did evaluate and examine this patient myself. I did guide management for the patient. I agree with the resident's () assessment as discussed. Please see the resident's dictation for further details. Impression Primary Impression: Weakness Additional Impressions: Anemia Pulmonary infiltrate on chest x-ray Scribe Attestation The scribe's documentation has been prepared under my direct and personally reviewed by me in its entirety. I confirm that the note above accurately reflects all work, treatment, procedures, and medical decision making performed by me. Departure Information Dispostion Being Evaluated By Hospitalist Referrals Irineo PenaPersonal Care,Sera (PCP) Patient Instructions My [facility] Problem Qualifiers
--- NOTE | 2016-09-03 19:50 | History and Physical ---
History & Physical Date & Time of Service: Sep 03, 2016 at 19:32 Chief Complaint: Weakness Primary Care Physician: Irineo Pena,Personal Care,Sera History of Present Illness Source: patient, family The patient is an 86-year-old female resident of [facility], who presents to ED with 2 days of confusion and increased sleepiness. She was admitted March 2016 for a CVA secondary to atrial fibrillation, for which she received TPA, and is presently on Xarelto. She had been in her usual state of health after the previous admission up until 2 days ago. There has not been any recent trauma, and there have been no obvious signs of infection. Past Medical/Surgical History Medical Problems: (1) Atrial fibrillation Status: Chronic (2) Diabetes Status: Chronic Family History Noncontributory secondary to age Social History Smoking Status: Never Smoker Alcohol Use: none Drug Use: none Marital Status: Housing status: assisted living Occupational Status: retired Immunizations History of Influenza Vaccine: N/A History of Tetanus Vaccine?: Unknown History of Pneumococcal: Yes History of Hepatitis B Vaccine: Unknown Multi-Drug Resistant Organisms History of MDRO: No Allergies Coded Allergies: Codeine (Verified Adverse Reaction, Mild, nausea, 09/03/16) Hydralazine (Verified Adverse Reaction, Mild, leg cramps currently taking a lower dose without problems, 09/03/16) Oxycodone (Verified Adverse Reaction, Mild, nausea, 09/03/16) Statins (Verified Adverse Reaction, Mild, leg cramps lack of interest, ) takes simvastatin now Home Medications Scheduled Calcium Carbonate (Calcium), 1 TAB PO DAILY Docusate Sodium (Docusate Sodium), 1 CAP PO BID Ferrous Sulfate (Ferrous Sulfate), 325 MG PO QPM Fish Oil ([facility]-3), 2 TAB PO BID Hydralazine HCl (Hydralazine HCl), 50 MG PO QID Insulin Glargine (Lantus), 8 UNIT SC QPM Insulin Lispro (Human) (Humalog Kwikpen), 10 UNIT SC BID Levothyroxine Sodium (Levothyroxine Sodium), 175 MCG PO QAM Metoprolol Tartrate (Lopressor), 100 MG PO BID Ocuvite Preservision (Ocuvite Preservision), 1 TAB PO BID Omeprazole (Prilosec), 20 MG PO DAILY Sennosides-Docusate Sodium (Sennalax-S), 1 TAB PO DAILY Sertraline HCl (Sertraline HCl), 1 TAB PO DAILY Simvastatin (Zocor), 40 MG PO QPM Tramadol (Ultram), 50 MG PO Q6HPRN Scheduled PRN Acetaminophen (Tylenol Arthritis Ext Rel), 650 MG PO Q8H PRN for Pain Miscellaneous Medications Polyethylene (Miralax) Review of Systems The patient denies chest pain, palpitations, shortness of breath, cough, lower extremity swelling, vision change, hearing change, sore throat, fevers, chills, sweats, weight change, fatigue, nausea, vomiting, abdominal pain, pelvic pain, blood in urine or stool, dysuria, urinary frequency or urgency, lightheadedness , dizziness, headache, rash, abnormal bruising or bleeding, imbalance, focal weakness, numbness or tingling in arms or legs, arthralgias or myalgias, back or neck pain, night sweats, or allergy symptoms. The review of systems is otherwise negative other than for that already noted above, and at least 10 systems have been reviewed. Physical Exam Vital Signs Date Time Temp Pulse Resp B/P Pulse Ox O2 Delivery O2 Flow Rate FiO2 09/03/16 19:02 56 22 133/107 98 Room Air 09/03/16 18:01 68 24 09/03/16 17:59 180/91 09/03/16 17:51 191/99 09/03/16 17:40 52 09/03/16 17:31 54 27 09/03/16 17:29 184/109 09/03/16 17:01 49 17 95 09/03/16 16:58 186/81 09/03/16 16:41 73 20 188/97 95 Room Air 09/03/16 16:32 188/97 09/03/16 16:31 60 22 09/03/16 15:01 63 23 94 09/03/16 14:43 61 20 159/94 96 Room Air 70 174/73 09/03/16 14:43 174/73 09/03/16 14:42 159/94 09/03/16 14:42 94 Room Air 09/03/16 14:31 62 18 95 09/03/16 14:29 154/72 09/03/16 14:01 63 20 93 09/03/16 13:59 143/67 09/03/16 13:41 68 09/03/16 13:33 36.5 67 20 133/69 98 Room Air 09/03/16 13:33 133/69 The patient is awake, well-developed and adequately nourished, alert and oriented 2, normocephalic and atraumatic, lying in bed and in no acute distress. HEENT--PERRL, EOMI, mucous membranes and oropharynx dry. Neck--supple, no JVD or bruits, thyroid normal, trachea midline, no adenopathy. Heart--normal S1 and S2, no extra beats, no murmurs, rubs or gallops. Lungs--decreased breath sounds at the bases bilaterally, no respiratory distress , no accessory muscle use. Abdomen--normal bowel sounds and soft, nontender and nondistended, no hernias or masses, no organomegaly. Extremities--there is bilaterally 1-2+ pitting edema There are good distal pulses b/l. Dermatologic--there is moderately severe erythema with draining vacuoles. Neurologic--cranial nerves II through XII grossly intact, motor and sensory examination normal. Psychiatric--normal affect. Diagnostics Laboratory Results Results Past 24 Hours Test 09/03/16 15:31 Range/Units White Blood Count 9.72 4.8-10.8 K/uL Red Blood Count 3.88 4.2-5.4 M/uL Hemoglobin 10.0 12.0-16.0 g/dL Hematocrit 32.3 37-47 % Mean Corpuscular Volume 83.2 80-100 fL Mean Corpuscular Hemoglobin 25.8 25-34 pg Mean Corpuscular Hemoglobin Concent 31.0 32-36 g/dl Platelet Count 293 130-400 K/uL Mean Platelet Volume 9.5 7.4-10.4 fL Neutrophils (%) (Auto) 79.2 % Lymphocytes (%) (Auto) 11.1 % Monocytes (%) (Auto) 8.4 % Eosinophils (%) (Auto) 0.7 % Basophils (%) (Auto) 0.4 % Neutrophils # (Auto) 7.69 1.4-6.5 K/uL Lymphocytes # (Auto) 1.08 1.2-3.4 K/uL Monocytes # (Auto) 0.82 0.11-0.59 K/uL Eosinophils # (Auto) 0.07 0-0.5 K/uL Basophils # (Auto) 0.04 0-0.2 K/uL RDW Standard Deviation 54.3 36.4-46.3 fL RDW Coefficient of Variation 17.9 11.5-14.5 % Immature Granulocyte % (Auto) 0.2 % Immature Granulocyte # (Auto) 0.02 0.00-0.02 K/uL Prothrombin Time 12.0 9.0-12.0 SECONDS Prothromb Time International Ratio 1.1 0.9-1.1 Sodium Level 138 136-145 mmol/L Potassium Level 4.4 3.5-5.1 mmol/L Chloride Level 103 98-107 mmol/L Carbon Dioxide Level 25 21-32 mmol/L Anion Gap 10.0 3-11 mmol/L Blood Urea Nitrogen 19 7-18 mg/dl Creatinine 1.30 0.60-1.20 mg/dl Est Creatinine Clear Calc Drug Dose 42.4 ml/min Estimated GFR () 43.6 Estimated GFR (Non- 37.6 BUN/Creatinine Ratio 14.3 10-20 Random Glucose 162 70-99 mg/dl Calcium Level 8.2 8.5-10.1 mg/dl Magnesium Level 1.7 1.8-2.4 mg/dl Total Bilirubin 0.4 0.2-1 mg/dl Aspartate Amino Transf (AST/SGOT) 17 15-37 U/L Alanine Aminotransferase (ALT/SGPT) 13 12-78 U/L Alkaline Phosphatase 77 45-117 U/L Troponin I 0.023 0-0.045 ng/ml Total Protein 6.3 6.4-8.2 gm/dl Albumin 2.3 3.4-5.0 gm/dl Globulin 4.0 2.5-4.0 gm/dl Albumin/Globulin Ratio 0.6 0.9-2 Diagnostic Radiology Patient Name: ARCHIE STEWART Unit Number: [id number] Dictated: 09/03/161445 Transcribed: 09/03/161445 EV Printed Date/Time: [~ rep prt dt]/[~ rep prt tm] [~ rep ct labl] - [~ rep ct ivnm] [facility] [place] [place] [address] Dictated: 09/03/16 1446 Transcribed: 09/03/16 1446 EV Printed Date/Time: [~ rep prt dt]/[~ rep prt tm] [~ rep ct labl] - [~ rep ct ivnm] CLINICAL HISTORY: Generalized weakness. FINDINGS: An AP, portable, upright chest radiograph is compared to study dated 03/23/2016 and correlated with chest CT dated 06/03/2016. The examination is degraded by portable technique, large body habitus, and patient rotation. The heart is enlarged and there is atherosclerotic calcification of the thoracic aorta. The pulmonary vasculature is noncongested. There is a left pleural effusion and bibasilar consolidation. The upper lobes appear Clear. No pneumothorax is seen. The skeletal structures are osteopenic. The bony thorax is grossly intact. IMPRESSION: 1. Cardiomegaly without radiographic evidence of congestive failure. 2. There is a left pleural effusion and bibasilar consolidation. Although this could represent atelectasis, correlate clinically for evidence of pneumonia/aspiration pneumonitis. Radiographic follow-up to resolution is recommended. Electronically signed by: Vince Caledron M.D. 09/03/2016 2:47 PM Dictated Date/Time: 09/03/2016 2:46 PM The status of this report is Signed. Draft = Not yet reviewed or approved by Radiologist. Signed = Reviewed and approved by Radiologist. <AttendingPhy></AttendingPhy> <FamilyPhy>Marcellus Elizabeth M.D.</FamilyPhy > <PrimaryPhy>[facility]</PrimaryPhy> <UnitNumber>[id number] </UnitNumber> <VisitNumber>[id number]</VisitNumber> <PatientName>ARCHIE STEWART</PatientName> <DateOfBirth>1930</DateOfBirth> <Location>[facility]</ Location> <ServiceDate>09/03/16</ServiceDate> <MNE>ESINDI</MNE> <OrderingPhy> Gisel Arzola MD</OrderingPhy> <OrderingPhyMNE>f rep ord dr adorno</ OrderingPhyMNE> <DictatingPhyMNE>f rep dict dr adorno</DictatingPhyMNE> <CCListMNE> f rep ct mne</CCListMNE> <AdmittingPhyMNE>f pt admit dr adorno</AdmittingPhyMNE> < AttendingPhyMNE>f pt attend dr adorno</AttendingPhyMNE> <ConsultingPhyMNE>f pt consult dr adorno</ConsultingPhyMNE> <FamilyPhyMNE>f pt fam dr adorno</FamilyPhyMNE> <OtherPhyMNE>f pt other dr adorno</OtherPhyMNE> < PrimaryPhyMNE>f pt prim care dr adorno</PrimaryPhyMNE> <ReferringPhyMNE>f pt referring dr adorno</ReferringPhyMNE> Patient Name: ARCHIE STEWART Unit Number: [id number] Dictated: 09/03/161524 Transcribed: 09/03/161524 EV Printed Date/Time: [~ rep prt dt]/[~ rep prt tm] [~ rep ct labl] - [~ rep ct ivnm] [facility] Radiology Department [place] [id number] Dictated: 09/03/161524 Transcribed: 09/03/16 152 EV Printed Date/Time: [~ rep prt dt]/[~ rep prt tm] [~ rep ct labl] - [~ rep ct ivnm] [~ rep ct add3]] CT SCAN OF THE BRAIN WITHOUT IV CONTRAST CLINICAL HISTORY: Generalized weakness. COMPARISON STUDY: CT of the brain dated 03/23/2016. MRI of the brain dated 03/24/2016. TECHNIQUE: Unenhanced axial CT scan of the brain is performed from the vertex to the skull base. CT DOSE: 537.48 mGy.cm FINDINGS: Brain parenchyma: There are age-related involutional changes noting moderate patchy subcortical and periventricular microangiopathic change. There is a septal malacia from a chronic right frontal infarct. There is no hemorrhage, mass effect, or evidence of acute territorial ischemia by CT criteria. Cruz-white matter is preserved. No extra-axial fluid collection is seen. Ventricles, sulci, cisterns: Prominent secondary to involutional change. Intracranial vasculature: There is atherosclerotic calcification of the cavernous carotid and vertebral arteries. Calvarium: Unremarkable. Sinuses and mastoids: The visualized paranasal sinuses are clear. The mastoid air cells are well pneumatized. Orbits: The bony orbits are grossly intact. There are bilateral ocular lens implants. IMPRESSION: Senescent changes and chronic right frontal infarct as above. There is no hemorrhage, mass effect, or evidence of acute territorial ischemia by CT criteria. Electronically signed by: Vince Calderon M.D. 09/03/2016 3:28 PM Dictated Date/Time: 09/03/2016 3:25 PM The status of this report is Signed. Draft = Not yet reviewed or approved by Radiologist. Signed = Reviewed and approved by Radiologist. <AttendingPhy></AttendingPhy> <FamilyPhy>Marcellus Elizabeth M.D.</FamilyPhy > <PrimaryPhy>[facility]</PrimaryPhy> <UnitNumber>[id number] </UnitNumber> <VisitNumber>[id number]</VisitNumber> <PatientName>ARCHIE STEWART</PatientName> <DateOfBirth>1930</DateOfBirth> <Location>[facility]</ Location> <ServiceDate>09/03/16</ServiceDate> <MNE>ESIJANI</MNE> <OrderingPhy> Gisel Arzola MD</OrderingPhy> <OrderingPhyMNE>f rep ord dr adorno</ OrderingPhyMNE> <DictatingPhyMNE>f rep dict dr adorno</DictatingPhyMNE> <CCListMNE> f rep ct kyree</CCListMNE> <AdmittingPhyMNE>f pt admit dr adorno</AdmittingPhyMNE> < AttendingPhyMNE>f pt attend dr adorno</AttendingPhyMNE> <ConsultingPhyMNE>f pt consult dr adorno</ConsultingPhyMNE> <FamilyPhyMNE>f pt fam dr adorno</FamilyPhyMNE> <OtherPhyMNE>f pt other dr adorno</OtherPhyMNE> < PrimaryPhyMNE>f pt prim care dr adorno</PrimaryPhyMNE> <ReferringPhyMNE>f pt referring dr adorno</ReferringPhyMNE> Patient Name: ARCHIE STEWART Unit Number: [id number] Dictated: 09/03/161637 Transcribed: 09/03/161637 MS Printed Date/Time: [~ rep prt dt]/[~ rep prt tm] [~ rep ct labl] - [~ rep ct ivnm] [facility] [place] [place] [address] Dictated: 09/03/161637 Transcribed: 09/03/161637 MS Printed Date/Time: [~ rep prt dt]/[~ rep prt tm] [~ rep ct labl] - [~ rep ct ivnm] [~ rep ct add3]] CHEST 2 VIEWS ROUTINE CLINICAL HISTORY: L base ?aspiration vs pneumonia pneumonia COMPARISON STUDY: 09/03/2016 2:29 PM FINDINGS: Moderate cardiomegaly. Prominence pulmonary vasculature. Slightly progressive infiltrative/effusion-type change left base. IMPRESSION: Slightly progressive effusion/infiltrative change left base. Mild stable cardia megaly. Pulmonary vascular congestion. Electronically signed by: Abhijeet Archer M.D. 09/03/2016 4:39 PM Dictated Date/Time: 09/03/2016 4:38 PM The status of this report is Signed. Draft = Not yet reviewed or approved by Radiologist. Signed = Reviewed and approved by Radiologist. <AttendingPhy></AttendingPhy> <FamilyPhy>Marcellus Elizabeth M.D.</FamilyPhy > <PrimaryPhy>[facility]</PrimaryPhy> <UnitNumber>[id number] </UnitNumber> <VisitNumber>[id number]</VisitNumber> <PatientName>ARCHIE STEWART</PatientName> <DateOfBirth>1930</DateOfBirth> <Location>[facility]</ Location> <ServiceDate>09/03/16</ServiceDate> <MNE>NITISHI</MNE> <OrderingPhy> Gisel Arzola MD</OrderingPhy> <OrderingPhyMNE>f rep ord dr adorno</ OrderingPhyMNE> <DictatingPhyMNE>f rep dict dr adorno</DictatingPhyMNE> <CCListMNE> f rep ct mne</CCListMNE> <AdmittingPhyMNE>f pt admit dr adorno</AdmittingPhyMNE> < AttendingPhyMNE>f pt attend dr adorno</AttendingPhyMNE> <ConsultingPhyMNE>f pt consult dr adorno</ConsultingPhyMNE> <FamilyPhyMNE>f pt fam dr adorno</FamilyPhyMNE> <OtherPhyMNE>f pt other dr adorno</OtherPhyMNE> < PrimaryPhyMNE>f pt prim care dr adorno</PrimaryPhyMNE> <ReferringPhyMNE>f pt referring dr adorno</ReferringPhyMNE> EKG EKG shows atrial flutter with variable block at a rate of 59 bpm, with no acute ST-T changes. Impression Assessment and Plan Infectious disease/pneumonia and bilateral lower extremity cellulitis--patient be admitted to the medical floor. She'll be placed on vancomycin IV per renal dosing, and Zosyn 3.375 mg IV every 12 hours. She may need PICC line placement for longer duration of antibiotics for the lower extremity cellulitis. Atrial fibrillation history/atrial flutter with variable block on presentation EKG--continue Xarelto 15 mg by mouth daily, hydralazine 50 mg by mouth 4 times a day, metoprolol tartrate 100 mg by mouth twice a day. She has been on furosemide and patient satting in the past but is not currently listed on her present medications. We'll place her on furosemide 40 mg by mouth twice a day and potassium chloride 20 mEq by mouth twice a day. Diabetes mellitus--continue Lantus insulin 8 units subcutaneous at 2000 hours, and place on Accu-Cheks before meals and at bedtime with NovoLog coverage. Hypothyroidism--continue levothyroxine sodium at 175 g by mouth daily. Hypercholesterolemia--continue simvastatin 40 mg by mouth every afternoon. GERD--change omeprazole 20 mg by mouth daily to pantoprazole 40 mg by mouth daily. Insomnia--continue melatonin 3 mg by mouth at bedtime. Depression--continue sertraline at 50 mg by mouth daily. Level of Care Telemetry Advanced Directives Existing Advance Directive: No Existing Living Will: No Existing Power of Bench Hand Machine: No Resuscitation Status FULL RESUSCITATION VTE Prophylaxis VTE Risk Assessment Done? Y/N: Yes Risk Level: Moderate Given or contraindicated: Other Anticoagulation (Xarelto), SCD's
[2016-09-03 20:02] LABS: URINE APPEARANCE CLOUDY (CLEAR); URINE BILIRUBIN NEG (NEG); URINE COLOR YELLOW; URINE EPITHELIAL CELL AUTO >30 /lpf (0-5); URINE NITRITE NEG (NEG); URINE PH 5.5 (4.5-7.5); URINE SPECIFIC GRAVITY 1.017 (1.000-1.030); UROBILINOGEN NEG (NEG)
[2016-09-03 20:11] LABS: MANUAL MICROSCOPIC REQUIRED? NO; REVIEW REQ? YES
--- NOTE | 2016-09-03 20:50 | Pharmacy Progress Note ---
Pharmacy Antibiotic Consult Date of Service: Sep 03, 2016. Pharmacy Dosing Scope Pharmacy is consulted to initiate vancomycin and Zosyn IV dosing therapy, order appropriate labs and adjust drug dose/frequency. Subjective The patient is a 86 year old female admitted on 09/03/16. Objective Height (Feet): 5 Height (Inches): 6.00 Weight (Kilograms): 119.700 Lab Results (24hrs): Laboratory Tests Test 09/03/16 15:31 BUN/Creatinine Ratio 14.3 Blood Urea Nitrogen 19 mg/dl Creatinine 1.30 mg/dl White Blood Count 9.72 K/uL Red Blood Count 3.88 M/uL Hemoglobin 10.0 g/dL Hematocrit 32.3 % Mean Corpuscular Volume 83.2 fL Mean Corpuscular Hemoglobin 25.8 pg Mean Corpuscular Hemoglobin Concent 31.0 g/dl Platelet Count 293 K/uL Mean Platelet Volume 9.5 fL Neutrophils (%) (Auto) 79.2 % Lymphocytes (%) (Auto) 11.1 % Monocytes (%) (Auto) 8.4 % Eosinophils (%) (Auto) 0.7 % Basophils (%) (Auto) 0.4 % Neutrophils # (Auto) 7.69 K/uL Lymphocytes # (Auto) 1.08 K/uL Monocytes # (Auto) 0.82 K/uL Eosinophils # (Auto) 0.07 K/uL Basophils # (Auto) 0.04 K/uL Micro Results: 09/02 clean catch urine pending 09/03 cath urine pending Recent Pertinent Medications Item Value Date Time Piperacillin Sod/ 120 ml @ 28.75 mls/hr 09/04/16 0200 Tazobactam Sod Q8@0200,1000,1800/IV 4.5 gm/Dextrose Vancomycin HCl 548 ml @ 200 mls/hr 09/03/16 1930 2400 mg/Sodium TODAY@1930/IV 09/03/162002 Chloride Piperacillin Sod/ 4.5 gm 09/03/16 1845 Tazobactam Sod TODAY@1845/IV 09/03/162002 (Zosyn Iv) Assessment & Plan Starting broad-spectrum antibiotics for possible pneumonia vs LE cellulitis vs ? UTI. Loading dose: vancomycin 2400 mg IV X 1 dose (~20 mg/kg- modified load), then: vancomycin 1550 mg IV q18h. Goal peak level estimate: between 25-40 mcg/mL. Goal trough level estimate: between 15-20 mcg/mL. Trough has been ordered for: 09/05/16 before 0600 dose. This will probably not be steady state, but I prefer to check sooner rather than later in an elderly patient. Zosyn 4.5 Gm IV over 30 minutes x1, then Zosyn 4.5 Gm (infused over 4 hr) q8h. ( For CrCl greater than 20 ml/min and BMI greater than 35.) Pharmacy will continue to follow and will adjust dose/frequency as necessary. Thank you
[2016-09-03] MEDS ORDERED: AMLODIPINE BESYLATE 5 MG TAB PO ONE (22:00)
[2016-09-03 22:09] VITALS: BP 184/84; TEMP 36.5; O2SAT 95; Ht 167.6 cm; Wt 119.7 kg
[2016-09-03] MEDS: FERROUS SULFATE 325 MG TAB PO SCH (22:28)
[2016-09-03] MEDS: DOCUSATE SODIUM 100 MG CAP PO SCH (22:28)
[2016-09-03] MEDS: METOPROLOL TARTRATE 50 MG TAB PO SCH (22:29)
[2016-09-03] MEDS: SIMVASTATIN 40 MG TAB PO SCH (22:30)
[2016-09-03] MEDS: OMEGA-3 (PURIFIED FISH OIL) 1 GM CAP PO SCH (22:30)
[2016-09-03] MEDS: CEROVITE ADV FORMULA TAB PO SCH (22:30)
[2016-09-03] MEDS: INSULIN GLARGINE SOLOSTAR 100 UNITS/ML 3 ML PEN SC SCH (22:33)
[2016-09-03] MEDS: INSULIN ASPART 100 UNITS/ML 3 ML PEN SC SCH (22:55)
[2016-09-03 23:43] VITALS: BP_SYST 133; BP_SYST 134; BP_SYST 150; BP_DIAS 66; BP_DIAS 79; BP_DIAS 84; PULSE 114; TEMP 36.8; O2SAT 98
[2016-09-04] MEDS: PIPERACILL/TAZOBAC IV 4.5 GM in DEXTROSE 5% 100ML 100 ML IV SCH ×3 (01:49→17:31)
[2016-09-04] MEDS: LEVOTHYROXINE 175 MCG TAB PO SCH (05:43)
[2016-09-04 06:15] LABS: BASO % 0.2 %; BASO ABS # 0.02 K/uL (0-0.2); COMPLETE YES; EOS % 0.9 %; HEMATOCRIT 31.4 % (37-47); IG% 0.1 %; LYMPH % 10.8 %; LYMPH ABS # 1.14 K/uL (1.2-3.4); MEAN CELL VOLUME 81.3 fL (80-100); MEAN CORPUSCULAR HEMOGLOBIN 24.6 pg (25-34); MEAN CORPUSCULAR HGB CONC 30.3 g/dl (32-36); MEAN PLATELET VOLUME 9.1 fL (7.4-10.4); MONO % 8.7 %; NEUT % 79.3 %; PLATELET COUNT 332 K/uL (130-400); RED BLOOD COUNT 3.86 M/uL (4.2-5.4); WHITE BLOOD COUNT 10.53 K/uL (4.8-10.8)
[2016-09-04 07:01] LABS: BUN/CREATININE RATIO 13.3 (10-20); CALCIUM 8.3 mg/dl (8.5-10.1); CREATININE 1.3 mg/dl (0.60-1.20); MAGNESIUM 1.6 mg/dl (1.8-2.4); POTASSIUM 4.4 mmol/L (3.5-5.1)
[2016-09-04 07:56] VITALS: BP 169/77; PULSE 60; TEMP 36.5; O2SAT 94
[2016-09-04] MEDS: CALCIUM 600MG + VIT D 400 IU TAB PO SCH (08:21)
[2016-09-04] MEDS: POLYETHYLENE (MIRALAX) 17 GM PACK PO SCH (08:21)
[2016-09-04] MEDS: SERTRALINE HCL 50 MG TAB PO SCH (08:21)
[2016-09-04] MEDS: CEROVITE ADV FORMULA TAB PO SCH ×2 (08:21→19:55)
[2016-09-04] MEDS: PANTOprazole SOD 40 MG TAB PO SCH (08:21)
[2016-09-04] MEDS: AMLODIPINE BESYLATE 5 MG TAB PO SCH ×2 (08:22→19:54)
[2016-09-04] MEDS: OMEGA-3 (PURIFIED FISH OIL) 1 GM CAP PO SCH ×2 (08:22→19:55)
[2016-09-04] MEDS: DOCUSATE SODIUM/SENNA 50/8.6MG TAB PO SCH (08:22)
[2016-09-04] MEDS: METOPROLOL TARTRATE 50 MG TAB PO SCH ×2 (08:22→19:56)
[2016-09-04] MEDS: INSULIN ASPART 100 UNITS/ML 3 ML PEN SC SCH ×4 (08:41→20:05)
[2016-09-04] MEDS: DOCUSATE SODIUM 100 MG CAP PO SCH ×2 (08:42→19:56)
[2016-09-04 11:27] VITALS: BP 172/80; PULSE 64; TEMP 36.2; O2SAT 97
[2016-09-04] MEDS: VANCOMYCIN INJ 1,550 MG in SODIUM CHLORIDE 0.9% 500ML 500 ML IV SCH (12:23)
[2016-09-04 14:34] VITALS: BP 151/59; PULSE 56; TEMP 36.8; O2SAT 95
--- NOTE | 2016-09-04 17:13 | Progress Note ---
Subjective Date of Service: Sep 04, 2016. Subjective Pt evaluation today including: conversation w/ patient, conversation w/ family Pt seen this AM without family present. She states she is feeling better. Still feels a bit SOB at times. States she has had issues with confusion since her stroke last year, but she cannot tell me exactly what that means. She can also not comment on confusion from yesterday. Feels her LE are about the same in terms of redness. Pt denies fever, chest pain, abd pain, n/v/c/d, LE pain or swelling. ROS as noted above, otherwise neg. Ate without issue. Son Alex was here this afternoon and states she is much better than yesterday. He says that she is still "talking in loops", which was new for her recently, but this is better than it was yesterday. She does not seem to remember things she was just told and repeats her questions. He states her usual is issues with numbers and dates. He also reports a decline since going to [facility] s/p rehab for her stroke. She was ambulating quite well on d/c from rehab, but she does not do her exercises as she should. He also states that she does not keep her legs propped up as she has been instructed. He is concerned that pt might need a higher level of care. He states that she doesn' t follow her diet and has gained about 25 lbs since rehab d/c. Problem List Medical Problems: (1) Anemia Status: Acute (2) Cellulitis, leg Status: Acute (3) Peripheral edema Status: Acute (4) Pulmonary infiltrate on chest x-ray Status: Acute (5) Renal insufficiency Status: Acute (6) Stroke Status: Acute (7) Weakness Status: Acute Objective Vital Signs Date Time Temp Pulse Resp B/P Pulse Ox O2 Delivery O2 Flow Rate FiO2 09/04/16 16:00 Room Air 09/04/16 14:34 36.8 56 18 151/59 95 Room Air 09/04/16 11:27 36.2 64 16 172/80 97 Room Air 09/04/16 10:22 Room Air 09/04/16 08:00 Room Air 09/04/16 07:56 36.5 60 16 169/77 94 Room Air 09/04/16 02:11 Room Air 09/03/16 23:43 36.8 114 16 134/79 98 Room Air 150/84 133/66 09/03/16 22:09 36.5 20 184/84 95 Room Air 09/03/16 21:07 64 20 184/84 96 Room Air 09/03/16 20:03 60 20 193/103 94 Room Air 09/03/16 19:02 56 22 133/107 98 Room Air 09/03/16 18:01 68 24 09/03/16 17:59 180/91 09/03/16 17:51 191/99 09/03/16 17:40 52 09/03/16 17:31 54 27 09/03/16 17:29 184/109 Physical Exam General Appearance: no apparent distress, + obese Respiratory/Chest: normal breath sounds, no respiratory distress Cardiovascular: regular rate, rhythm, no edema Abdomen: non tender, soft Extremities: non-tender, no pedal edema Neurologic/Psychiatric: alert, normal mood/affect Skin: warm/dry, + pertinent finding (b/l LE with redness and blistering below the knee, I placed ink outline today) Laboratory Results Last 24 Hours Test 09/03/16 19:10 09/03/16 21:04 09/03/16 21:47 09/04/16 05:40 Urine Color YELLOW Urine Appearance CLOUDY Urine pH 5.5 Urine Specific [place] 1.017 Urine Protein 2+ Urine Glucose (UA) NEG Urine Ketones NEG Urine Occult Blood NEG Urine Nitrite NEG Urine Bilirubin NEG Urine Urobilinogen NEG Urine Leukocyte Esterase LARGE Urine WBC (Auto) >30 /hpf Urine RBC (Auto) 0-4 /hpf Urine Hyaline Casts (Auto) 1-5 /lpf Urine Epithelial Cells (Auto) >30 /lpf Urine Bacteria (Auto) 3+ Urine Yeast (Auto) Bedside Glucose 159 mg/dl 128 mg/dl White Blood Count 10.53 K/uL Red Blood Count 3.86 M/uL Hemoglobin 9.5 g/dL Hematocrit 31.4 % Mean Corpuscular Volume 81.3 fL Mean Corpuscular Hemoglobin 24.6 pg Mean Corpuscular Hemoglobin Concent 30.3 g/dl Platelet Count 332 K/uL Mean Platelet Volume 9.1 fL Neutrophils (%) (Auto) 79.3 % Lymphocytes (%) (Auto) 10.8 % Monocytes (%) (Auto) 8.7 % Eosinophils (%) (Auto) 0.9 % Basophils (%) (Auto) 0.2 % Neutrophils # (Auto) 8.35 K/uL Lymphocytes # (Auto) 1.14 K/uL Monocytes # (Auto) 0.92 K/uL Eosinophils # (Auto) 0.09 K/uL Basophils # (Auto) 0.02 K/uL RDW Standard Deviation 52.6 fL RDW Coefficient of Variation 17.8 % Immature Granulocyte % (Auto) 0.1 % Immature Granulocyte # (Auto) 0.01 K/uL Sodium Level 138 mmol/L Potassium Level 4.4 mmol/L Chloride Level 102 mmol/L Carbon Dioxide Level 26 mmol/L Anion Gap 10.0 mmol/L Blood Urea Nitrogen 17 mg/dl Creatinine 1.30 mg/dl Est Creatinine Clear Calc Drug Dose 42.4 ml/min Estimated GFR () 43.6 Estimated GFR (Non- 37.6 BUN/Creatinine Ratio 13.3 Random Glucose 123 mg/dl Calcium Level 8.3 mg/dl Magnesium Level 1.6 mg/dl Test 09/04/16 07:56 09/04/16 11:20 09/04/16 16:34 Bedside Glucose 163 mg/dl 152 mg/dl 159 mg/dl Assessment and Plan 86 y/o F who was admitted on 09/03 with AMS, weakness. AMS: pneumonia and bilateral lower extremity cellulitis, possible UTI POA Started on vanco/Zosyn and much improved, will d/c vanco today and monitor CXR noted with repeat CXR again noted for PNA UA + for leuk est, neg nitrites, no UTI sx and cx pending I placed ink lines today s/p abx initiation yesterday, undetermined improvement but likely better CT head neg for acute issues Atrial fibrillation history/atrial flutter with variable block on presentation EKG--continue Xarelto 15 mg by mouth daily, hydralazine 50 mg by mouth 4 times a day, metoprolol tartrate 100 mg by mouth twice a day. Hx of lasix in the past, will resume with potassium chloride 20 mEq by mouth twice a day. Diabetes mellitus--continue Lantus insulin 8 units subcutaneous at 2000 hours, and place on Accu-Cheks before meals and at bedtime with NovoLog coverage. Hypothyroidism--continue levothyroxine sodium at 175 g by mouth daily. Hypercholesterolemia--continue simvastatin 40 mg by mouth every afternoon. GERD--change omeprazole 20 mg by mouth daily to pantoprazole 40 mg by mouth daily. Insomnia--continue melatonin 3 mg by mouth at bedtime. Depression--continue sertraline at 50 mg by mouth daily. CVA hx: son states issue with numbers, dates at baseline, will monitor PT/OT evals pending for possible return to [facility] vs higher level of care
[2016-09-04 19:52] VITALS: BP 141/80; PULSE 61; O2SAT 96
[2016-09-04] MEDS: SIMVASTATIN 40 MG TAB PO SCH (19:54)
[2016-09-04] MEDS: FERROUS SULFATE 325 MG TAB PO SCH (19:56)
[2016-09-04] MEDS: INSULIN GLARGINE SOLOSTAR 100 UNITS/ML 3 ML PEN SC SCH (20:06)
[2016-09-04 23:05] VITALS: BP 126/57; PULSE 53; TEMP 36.7; O2SAT 96
[2016-09-05] MEDS: PIPERACILL/TAZOBAC IV 4.5 GM in DEXTROSE 5% 100ML 100 ML IV SCH ×3 (01:40→18:02)
[2016-09-05] MEDS ORDERED: VANCOMYCIN TROUGH ONE (05:30)
[2016-09-05] MEDS: LEVOTHYROXINE 175 MCG TAB PO SCH (06:03)
[2016-09-05] MEDS: VANCOMYCIN INJ 1,550 MG in SODIUM CHLORIDE 0.9% 500ML 500 ML IV SCH (06:03)
[2016-09-05 06:29] LABS: BASO % 0.4 %; BASO ABS # 0.04 K/uL (0-0.2); COMPLETE YES; EOS % 0.6 %; HEMATOCRIT 29.4 % (37-47); IG% 0.2 %; LYMPH % 10.3 %; LYMPH ABS # 1.13 K/uL (1.2-3.4); MEAN CELL VOLUME 80.5 fL (80-100); MEAN CORPUSCULAR HEMOGLOBIN 25.2 pg (25-34); MEAN CORPUSCULAR HGB CONC 31.3 g/dl (32-36); MEAN PLATELET VOLUME 9.2 fL (7.4-10.4); MONO % 9.2 %; NEUT % 79.3 %; PLATELET COUNT 290 K/uL (130-400); RED BLOOD COUNT 3.65 M/uL (4.2-5.4); WHITE BLOOD COUNT 11.01 K/uL (4.8-10.8)
[2016-09-05 07:01] LABS: CALCIUM 8.1 mg/dl (8.5-10.1); CREATININE 1.4 mg/dl (0.60-1.20); MAGNESIUM 1.7 mg/dl (1.8-2.4)
[2016-09-05 08:45] VITALS: BP 158/86; PULSE 52; TEMP 36.6; O2SAT 96
[2016-09-05 08:52] VITALS: BP 178/90
[2016-09-05] MEDS: DOCUSATE SODIUM 100 MG CAP PO SCH ×2 (09:02→20:37)
[2016-09-05] MEDS: CALCIUM 600MG + VIT D 400 IU TAB PO SCH (09:02)
[2016-09-05] MEDS: AMLODIPINE BESYLATE 5 MG TAB PO SCH ×2 (09:03→20:44)
[2016-09-05] MEDS: OMEGA-3 (PURIFIED FISH OIL) 1 GM CAP PO SCH ×2 (09:03→20:43)
[2016-09-05] MEDS: POLYETHYLENE (MIRALAX) 17 GM PACK PO SCH (09:03)
[2016-09-05] MEDS: DOCUSATE SODIUM/SENNA 50/8.6MG TAB PO SCH (09:03)
[2016-09-05] MEDS: PANTOprazole SOD 40 MG TAB PO SCH (09:03)
[2016-09-05] MEDS: CEROVITE ADV FORMULA TAB PO SCH ×2 (09:03→20:40)
[2016-09-05] MEDS: SERTRALINE HCL 50 MG TAB PO SCH (09:04)
[2016-09-05] MEDS: METOPROLOL TARTRATE 50 MG TAB PO SCH ×2 (09:04→20:41)
[2016-09-05] MEDS: INSULIN ASPART 100 UNITS/ML 3 ML PEN SC SCH ×4 (09:08→20:51)
--- NOTE | 2016-09-05 12:48 | Progress Note ---
Subjective Date of Service: Sep 05, 2016. Subjective Pt evaluation today including: conversation w/ patient Pt continues to feel improved. Still some SOB at times and completely dependent on nursing for ambulation and transfers. Ate without issue. Pt denies fever, chest pain, abd pain, n/v/c/d, LE pain or swelling. ROS as noted above, otherwise neg. Problem List Medical Problems: (1) Anemia Status: Acute (2) Cellulitis, leg Status: Acute (3) Peripheral edema Status: Acute (4) Pulmonary infiltrate on chest x-ray Status: Acute (5) Renal insufficiency Status: Acute (6) Stroke Status: Acute (7) Weakness Status: Acute Objective Vital Signs Date Time Temp Pulse Resp B/P Pulse Ox O2 Delivery O2 Flow Rate FiO2 09/05/16 10:23 Room Air 09/05/16 08:52 178/90 Room Air 09/05/16 08:45 36.6 52 24 158/86 96 09/05/16 00:00 Room Air 09/04/16 23:05 36.7 53 18 126/57 96 Room Air 09/04/16 20:00 Room Air 09/04/16 19:52 61 141/80 96 Room Air 09/04/16 16:00 Room Air 09/04/16 14:34 36.8 56 18 151/59 95 Room Air Physical Exam Comments: General Appearance: no apparent distress, + obese Respiratory/Chest: normal breath sounds, no respiratory distress Cardiovascular: regular rate, rhythm, no edema Abdomen: non tender, soft Extremities: non-tender, no pedal edema Neurologic/Psychiatric: alert, normal mood/affect Skin: warm/dry, + pertinent finding (b/l LE with redness and blistering below the knee that is regressing from lines drawn 09/04) Laboratory Results Last 24 Hours Test 09/04/16 16:34 09/04/16 19:55 09/05/16 05:40 09/05/16 07:23 Bedside Glucose 159 mg/dl 168 mg/dl 100 mg/dl White Blood Count 11.01 K/uL Red Blood Count 3.65 M/uL Hemoglobin 9.2 g/dL Hematocrit 29.4 % Mean Corpuscular Volume 80.5 fL Mean Corpuscular Hemoglobin 25.2 pg Mean Corpuscular Hemoglobin Concent 31.3 g/dl Platelet Count 290 K/uL Mean Platelet Volume 9.2 fL Neutrophils (%) (Auto) 79.3 % Lymphocytes (%) (Auto) 10.3 % Monocytes (%) (Auto) 9.2 % Eosinophils (%) (Auto) 0.6 % Basophils (%) (Auto) 0.4 % Neutrophils # (Auto) 8.74 K/uL Lymphocytes # (Auto) 1.13 K/uL Monocytes # (Auto) 1.01 K/uL Eosinophils # (Auto) 0.07 K/uL Basophils # (Auto) 0.04 K/uL RDW Standard Deviation 52.4 fL RDW Coefficient of Variation 17.8 % Immature Granulocyte % (Auto) 0.2 % Immature Granulocyte # (Auto) 0.02 K/uL Sodium Level 139 mmol/L Potassium Level 4.0 mmol/L Chloride Level 102 mmol/L Carbon Dioxide Level 26 mmol/L Anion Gap 11.0 mmol/L Blood Urea Nitrogen 20 mg/dl Creatinine 1.40 mg/dl Est Creatinine Clear Calc Drug Dose 39.4 ml/min Estimated GFR () 39.9 Estimated GFR (Non- 34.4 BUN/Creatinine Ratio 14.0 Random Glucose 95 mg/dl Calcium Level 8.1 mg/dl Magnesium Level 1.7 mg/dl Vancomycin Level Trough 14.1 mcg/ml Test 09/05/16 11:26 Bedside Glucose 154 mg/dl Assessment and Plan 86 y/o F who was admitted on 09/03 with AMS, weakness. AMS: pneumonia and bilateral lower extremity cellulitis, possible UTI POA Started on vanco/Zosyn and much improved, will d/c vanco today (last dose 09/05 12a) and change zosyn to a PO alternative if sx continue to improve and monitor CXR noted with repeat CXR again noted for PNA UA + for leuk est, neg nitrites, no UTI sx and cx essentially neg I placed ink lines 09/04 s/p abx initiation in the ED and noted improved today CT head neg for acute issues Atrial fibrillation history/atrial flutter with variable block on presentation EKG--continue Xarelto 15 mg by mouth daily, hydralazine 50 mg by mouth 4 times a day, metoprolol tartrate 100 mg by mouth twice a day. Hx of lasix in the past, will resume with potassium chloride 20 mEq by mouth twice a day. Diabetes mellitus--continue Lantus insulin 8 units subcutaneous at 2000 hours, and place on Accu-Cheks before meals and at bedtime with NovoLog coverage. Hypothyroidism--continue levothyroxine sodium at 175 g by mouth daily. Hypercholesterolemia--continue simvastatin 40 mg by mouth every afternoon. GERD--change omeprazole 20 mg by mouth daily to pantoprazole 40 mg by mouth daily. Insomnia--continue melatonin 3 mg by mouth at bedtime. Depression--continue sertraline at 50 mg by mouth daily. CVA hx: son states issue with numbers, dates at baseline, will monitor PT/OT recs for SNF, CM is aware
[2016-09-05 14:58] VITALS: BP 150/84; PULSE 83; TEMP 36.7; O2SAT 95
[2016-09-05 20:39] VITALS: BP 149/72; PULSE 65
[2016-09-05] MEDS: SIMVASTATIN 40 MG TAB PO SCH (20:40)
[2016-09-05] MEDS: FERROUS SULFATE 325 MG TAB PO SCH (20:44)
[2016-09-05] MEDS: INSULIN GLARGINE SOLOSTAR 100 UNITS/ML 3 ML PEN SC SCH (20:49)
[2016-09-06 00:19] VITALS: BP 163/72; PULSE 63; TEMP 36.7; O2SAT 95
[2016-09-06] MEDS: PIPERACILL/TAZOBAC IV 4.5 GM in DEXTROSE 5% 100ML 100 ML IV SCH (02:28)
[2016-09-06] MEDS: LEVOTHYROXINE 175 MCG TAB PO SCH (06:02)
[2016-09-06 06:22] LABS: BASO % 0.3 %; BASO ABS # 0.03 K/uL (0-0.2); HEMATOCRIT 28.3 % (37-47); IG% 0.2 %; LYMPH % 8.7 %; LYMPH ABS # 0.91 K/uL (1.2-3.4); MEAN CELL VOLUME 82.3 fL (80-100); MEAN CORPUSCULAR HEMOGLOBIN 25.3 pg (25-34); MEAN CORPUSCULAR HGB CONC 30.7 g/dl (32-36); MEAN PLATELET VOLUME 9.5 fL (7.4-10.4); MONO % 9.4 %; NEUT % 80.4 %; PLATELET COUNT 281 K/uL (130-400); RED BLOOD COUNT 3.44 M/uL (4.2-5.4)
[2016-09-06 06:51] LABS: BUN/CREATININE RATIO 13.6 (10-20); CALCIUM 8.2 mg/dl (8.5-10.1); CREATININE 1.4 mg/dl (0.60-1.20); MAGNESIUM 1.6 mg/dl (1.8-2.4); POTASSIUM 3.9 mmol/L (3.5-5.1)
[2016-09-06 06:57] LABS: ANISOCYTOSIS PRESENT; COMPLETE YES
[2016-09-06 06:59] VITALS: BP 138/66; PULSE 66; TEMP 36.6; O2SAT 94
[2016-09-06] MEDS: CALCIUM 600MG + VIT D 400 IU TAB PO SCH (08:38)
[2016-09-06] MEDS: POLYETHYLENE (MIRALAX) 17 GM PACK PO SCH (08:38)
[2016-09-06] MEDS: DOCUSATE SODIUM 100 MG CAP PO SCH (08:38)
[2016-09-06] MEDS: CEROVITE ADV FORMULA TAB PO SCH ×2 (08:38→20:30)
[2016-09-06] MEDS: METOPROLOL TARTRATE 50 MG TAB PO SCH ×2 (08:38→20:30)
[2016-09-06] MEDS: SERTRALINE HCL 50 MG TAB PO SCH (08:39)
[2016-09-06] MEDS: OMEGA-3 (PURIFIED FISH OIL) 1 GM CAP PO SCH ×2 (08:39→20:31)
[2016-09-06] MEDS: PANTOprazole SOD 40 MG TAB PO SCH (08:39)
[2016-09-06] MEDS: DOCUSATE SODIUM/SENNA 50/8.6MG TAB PO SCH (08:39)
[2016-09-06] MEDS: AMLODIPINE BESYLATE 5 MG TAB PO SCH ×2 (08:39→20:30)
[2016-09-06] MEDS: INSULIN ASPART 100 UNITS/ML 3 ML PEN SC SCH ×4 (08:47→21:16)
[2016-09-06] MEDS ORDERED: AMOXICILLIN/CLAVULANATE TAB 875 MG TAB PO ONE (10:45)
[2016-09-06] MEDS ORDERED: NURSING VERBAL MED ORDER ONE (11:15)
[2016-09-06] MEDS: SACCHAROMYCES BOUL (FLORASTOR) 250 MG CAP PO SCH (12:42)
--- NOTE | 2016-09-06 15:30 | Progress Note ---
Subjective Date of Service: Sep 06, 2016. Subjective Pt evaluation today including: conversation w/ patient Pt continues to feel improved. Eating without issue. Pt denies fever, SOB, chest pain, abd pain, n/v/c/d, LE pain or swelling. ROS as noted above, otherwise neg. Problem List Medical Problems: (1) Anemia Status: Acute (2) Cellulitis, leg Status: Acute (3) Peripheral edema Status: Acute (4) Pulmonary infiltrate on chest x-ray Status: Acute (5) Renal insufficiency Status: Acute (6) Stroke Status: Acute (7) Weakness Status: Acute Objective Vital Signs Date Time Temp Pulse Resp B/P Pulse Ox O2 Delivery O2 Flow Rate FiO2 09/06/16 10:19 Room Air 09/06/16 06:59 36.6 66 18 138/66 94 Room Air 09/06/16 00:19 36.7 63 18 163/72 95 Room Air 09/06/16 00:00 Room Air 09/05/16 20:39 65 149/72 09/05/16 16:00 Room Air Physical Exam Comments: General Appearance: no apparent distress, + obese Respiratory/Chest: normal breath sounds, no respiratory distress Cardiovascular: regular rate, rhythm, no edema Abdomen: non tender, soft Extremities: non-tender, no pedal edema Neurologic/Psychiatric: alert, normal mood/affect Skin: warm/dry, + pertinent finding (b/l LE with redness and blistering below the knee that is regressing from lines drawn 09/04) Laboratory Results Last 24 Hours Test 09/05/16 16:35 09/05/16 19:44 09/06/16 05:41 09/06/16 07:39 Bedside Glucose 113 mg/dl 185 mg/dl 116 mg/dl White Blood Count 10.50 K/uL Red Blood Count 3.44 M/uL Hemoglobin 8.7 g/dL Hematocrit 28.3 % Mean Corpuscular Volume 82.3 fL Mean Corpuscular Hemoglobin 25.3 pg Mean Corpuscular Hemoglobin Concent 30.7 g/dl Platelet Count 281 K/uL Mean Platelet Volume 9.5 fL Neutrophils (%) (Auto) 80.4 % Lymphocytes (%) (Auto) 8.7 % Monocytes (%) (Auto) 9.4 % Eosinophils (%) (Auto) 1.0 % Basophils (%) (Auto) 0.3 % Neutrophils # (Auto) 8.45 K/uL Lymphocytes # (Auto) 0.91 K/uL Monocytes # (Auto) 0.99 K/uL Eosinophils # (Auto) 0.10 K/uL Basophils # (Auto) 0.03 K/uL RDW Standard Deviation 54.0 fL RDW Coefficient of Variation 18.1 % Immature Granulocyte % (Auto) 0.2 % Immature Granulocyte # (Auto) 0.02 K/uL Anisocytosis PRESENT Sodium Level 138 mmol/L Potassium Level 3.9 mmol/L Chloride Level 102 mmol/L Carbon Dioxide Level 23 mmol/L Anion Gap 13.0 mmol/L Blood Urea Nitrogen 19 mg/dl Creatinine 1.40 mg/dl Est Creatinine Clear Calc Drug Dose 39.4 ml/min Estimated GFR () 39.9 Estimated GFR (Non- 34.4 BUN/Creatinine Ratio 13.6 Random Glucose 116 mg/dl Calcium Level 8.2 mg/dl Magnesium Level 1.6 mg/dl Test 09/06/16 11:36 09/06/16 12:45 Bedside Glucose 163 mg/dl Stool Occult Blood NEGATIVE Assessment and Plan 86 y/o F who was admitted on 09/03 with AMS, weakness. AMS: pneumonia and bilateral lower extremity cellulitis, possible UTI POA Started on vanco/Zosyn and much improved, ongoing improvement without vanco ( last dose 09/05 12a) and change zosyn to augmentin and monitor CXR noted with repeat CXR again noted for PNA UA + for leuk est, neg nitrites, no UTI sx and cx essentially neg I placed ink lines 09/04 s/p abx initiation in the ED and again noted improved today CT head neg for acute issues Atrial fibrillation history/atrial flutter with variable block on presentation EKG--continue Xarelto 15 mg by mouth daily, hydralazine 50 mg by mouth 4 times a day, metoprolol tartrate 100 mg by mouth twice a day. Hx of lasix in the past, will resume with potassium chloride 20 mEq by mouth twice a day. Diabetes mellitus--continue Lantus insulin 8 units subcutaneous at 2000 hours, and place on Accu-Cheks before meals and at bedtime with NovoLog coverage. Hypothyroidism--continue levothyroxine sodium at 175 g by mouth daily. Hypercholesterolemia--continue simvastatin 40 mg by mouth every afternoon. GERD--change omeprazole 20 mg by mouth daily to pantoprazole 40 mg by mouth daily. Insomnia--continue melatonin 3 mg by mouth at bedtime. Depression--continue sertraline at 50 mg by mouth daily. CVA hx: son states issue with numbers, dates at baseline, will monitor PT/OT recs for SNF, CM is aware. Pt pref is back to [facility], however son was concerned on 09/04 that she needed increased level of care. LMOM.
[2016-09-06 16:35] VITALS: BP 157/99; PULSE 51; TEMP 36.7
[2016-09-06] MEDS: AMOXICILLIN/CLAVULANATE TAB 875 MG TAB PO SCH (17:24)
[2016-09-06 20:28] VITALS: BP 157/83; PULSE 60
[2016-09-06] MEDS: SIMVASTATIN 40 MG TAB PO SCH (20:32)
[2016-09-06] MEDS: FERROUS SULFATE 325 MG TAB PO SCH (20:33)
[2016-09-06] MEDS: INSULIN GLARGINE SOLOSTAR 100 UNITS/ML 3 ML PEN SC SCH (21:17)
[2016-09-06 23:24] VITALS: BP 130/69; PULSE 65; TEMP 37.1; O2SAT 93
[2016-09-07] MEDS: LEVOTHYROXINE 175 MCG TAB PO SCH (05:45)
[2016-09-07 06:19] LABS: MEAN CELL VOLUME 81.5 fL (80-100); MEAN CORPUSCULAR HEMOGLOBIN 25.3 pg (25-34); MEAN PLATELET VOLUME 9.5 fL (7.4-10.4); PLATELET COUNT 287 K/uL (130-400); RED BLOOD COUNT 3.56 M/uL (4.2-5.4); WHITE BLOOD COUNT 9.61 K/uL (4.8-10.8)
[2016-09-07 07:04] VITALS: BP 162/72; PULSE 62; TEMP 36.5; O2SAT 95
[2016-09-07] MEDS: CALCIUM 600MG + VIT D 400 IU TAB PO SCH (08:56)
[2016-09-07] MEDS: INSULIN ASPART 100 UNITS/ML 3 ML PEN SC SCH ×4 (08:56→20:45)
[2016-09-07] MEDS: PANTOprazole SOD 40 MG TAB PO SCH (08:57)
[2016-09-07] MEDS: AMOXICILLIN/CLAVULANATE TAB 875 MG TAB PO SCH ×2 (08:58→17:26)
[2016-09-07] MEDS: OMEGA-3 (PURIFIED FISH OIL) 1 GM CAP PO SCH ×2 (08:58→20:31)
[2016-09-07] MEDS: METOPROLOL TARTRATE 50 MG TAB PO SCH ×2 (08:58→20:30)
[2016-09-07] MEDS: SACCHAROMYCES BOUL (FLORASTOR) 250 MG CAP PO SCH (08:59)
[2016-09-07] MEDS: CEROVITE ADV FORMULA TAB PO SCH ×2 (08:59→20:32)
[2016-09-07] MEDS: SERTRALINE HCL 50 MG TAB PO SCH (08:59)
[2016-09-07] MEDS: AMLODIPINE BESYLATE 5 MG TAB PO SCH ×2 (09:00→20:32)
--- NOTE | 2016-09-07 10:54 | Progress Note ---
Subjective Date of Service: Sep 07, 2016. Subjective Pt evaluation today including: conversation w/ patient, conversation w/ family Pt is doing better. She is still requiring max assist for transfers and ambulation. Ate all of her breakfast this AM. Feels her LE are painful when she is being transferred "because they move me too fast". No SOB. Pt denies fever, chest pain, abd pain, n/v/c/d, LE pain. ROS as noted above, otherwise neg. Son is here today and feels that her LE are much improved in terms of swelling and redness. He also feels that her mentation is back to her baseline. He agrees with SNF placement and would like to proceed with this when able. He is not familiar with the facilities in the area and has no preference about facility at this time but would like to speak with case management when able. Problem List Medical Problems: (1) Anemia Status: Acute (2) Cellulitis, leg Status: Acute (3) Peripheral edema Status: Acute (4) Pulmonary infiltrate on chest x-ray Status: Acute (5) Renal insufficiency Status: Acute (6) Stroke Status: Acute (7) Weakness Status: Acute Objective Vital Signs Date Time Temp Pulse Resp B/P Pulse Ox O2 Delivery O2 Flow Rate FiO2 09/07/16 08:30 Room Air 09/07/16 07:04 36.5 62 18 162/72 95 Room Air 09/07/16 00:00 Room Air 09/06/16 23:24 37.1 65 18 130/69 93 Room Air 09/06/16 20:28 60 157/83 09/06/16 16:35 36.7 51 18 157/99 09/06/16 16:00 Room Air Physical Exam Comments: General Appearance: no apparent distress, + obese Respiratory/Chest: normal breath sounds, no respiratory distress Cardiovascular: regular rate, rhythm, no edema Abdomen: non tender, soft Extremities: non-tender, no pedal edema Neurologic/Psychiatric: alert, normal mood/affect Skin: warm/dry, + pertinent finding (b/l LE with redness that is regressing from lines drawn 09/04, blisters are resolved) Laboratory Results Last 24 Hours Test 09/06/16 11:36 09/06/16 12:45 09/06/16 16:33 09/06/16 19:53 Bedside Glucose 163 mg/dl 134 mg/dl 186 mg/dl Stool Occult Blood NEGATIVE Test 09/07/16 05:37 09/07/16 07:43 White Blood Count 9.61 K/uL Red Blood Count 3.56 M/uL Hemoglobin 9.0 g/dL Hematocrit 29.0 % Mean Corpuscular Volume 81.5 fL Mean Corpuscular Hemoglobin 25.3 pg Mean Corpuscular Hemoglobin Concent 31.0 g/dl RDW Standard Deviation 53.9 fL RDW Coefficient of Variation 18.2 % Platelet Count 287 K/uL Mean Platelet Volume 9.5 fL Bedside Glucose 130 mg/dl Assessment and Plan 86 y/o F who was admitted on 09/03 with AMS, weakness. AMS: pneumonia and bilateral lower extremity cellulitis, possible UTI POA Started on vanco/Zosyn and much improved, ongoing improvement without vanco ( last dose 09/05 12a) and changed zosyn to augmentin on 09/06 and continues to improve CXR noted with repeat CXR again noted for PNA UA + for leuk est, neg nitrites, no UTI sx and cx essentially neg I placed ink lines 09/04 s/p abx initiation in the ED and again noted improved today CT head neg for acute issues Anemia: declining H/H over the last few days, but now improving Stool neg for blood Hesitant to hold xarelto given no clear bleeding and plts WNL, will continue to monitor Atrial fibrillation history/atrial flutter with variable block on presentation EKG--continue Xarelto 15 mg by mouth daily, hydralazine 50 mg by mouth 4 times a day, metoprolol tartrate 100 mg by mouth twice a day. Hx of lasix in the past, will resume with potassium chloride 20 mEq by mouth twice a day. Diabetes mellitus--continue Lantus insulin 8 units subcutaneous at 2000 hours, and place on Accu-Cheks before meals and at bedtime with NovoLog coverage. Hypothyroidism--continue levothyroxine sodium at 175 g by mouth daily. Hypercholesterolemia--continue simvastatin 40 mg by mouth every afternoon. GERD--change omeprazole 20 mg by mouth daily to pantoprazole 40 mg by mouth daily. Insomnia--continue melatonin 3 mg by mouth at bedtime. Depression--continue sertraline at 50 mg by mouth daily. CVA hx: son states issue with numbers, dates at baseline, and is at her baseline PT/OT recs for SNF, LAKESHA is aware. Pt pref is back to [facility], however son was concerned on 09/04 that she needed increased level of care. I did discuss and he feels SNF is better for pt. If LAKESHA is calling on Thursday, he requests cell phone to be called as he will be at work. Number is on the chart.
[2016-09-07 14:53] VITALS: BP 148/73; PULSE 61; TEMP 36.6; O2SAT 98
[2016-09-07 20:30] VITALS: PULSE 58
[2016-09-07] MEDS: FERROUS SULFATE 325 MG TAB PO SCH (20:32)
[2016-09-07] MEDS: SIMVASTATIN 40 MG TAB PO SCH (20:32)
[2016-09-07] MEDS: INSULIN GLARGINE SOLOSTAR 100 UNITS/ML 3 ML PEN SC SCH (20:42)
[2016-09-07 23:16] VITALS: BP 156/74; PULSE 62; TEMP 36.6; O2SAT 92
[2016-09-08] MEDS: LEVOTHYROXINE 175 MCG TAB PO SCH (05:40)
[2016-09-08 05:46] LABS: HEMATOCRIT 27.3 % (37-47); MEAN CELL VOLUME 79.1 fL (80-100); MEAN CORPUSCULAR HEMOGLOBIN 25.8 pg (25-34); MEAN CORPUSCULAR HGB CONC 32.6 g/dl (32-36); MEAN PLATELET VOLUME 9.1 fL (7.4-10.4); PLATELET COUNT 287 K/uL (130-400); RED BLOOD COUNT 3.45 M/uL (4.2-5.4); WHITE BLOOD COUNT 8.83 K/uL (4.8-10.8)
[2016-09-08 06:30] LABS: BUN/CREATININE RATIO 13.9 (10-20); CREATININE 1.5 mg/dl (0.60-1.20); POTASSIUM 4.3 mmol/L (3.5-5.1)
[2016-09-08 07:00] VITALS: BP 172/68; PULSE 75; TEMP 36.7; O2SAT 96
[2016-09-08] MEDS: SACCHAROMYCES BOUL (FLORASTOR) 250 MG CAP PO SCH (07:39)
[2016-09-08] MEDS: PANTOprazole SOD 40 MG TAB PO SCH (07:39)
[2016-09-08] MEDS: OMEGA-3 (PURIFIED FISH OIL) 1 GM CAP PO SCH ×2 (07:39→20:00)
[2016-09-08] MEDS: CEROVITE ADV FORMULA TAB PO SCH ×2 (07:39→20:00)
[2016-09-08] MEDS: METOPROLOL TARTRATE 50 MG TAB PO SCH ×2 (07:39→20:00)
[2016-09-08] MEDS: AMLODIPINE BESYLATE 5 MG TAB PO SCH ×2 (07:39→20:00)
[2016-09-08] MEDS: CALCIUM 600MG + VIT D 400 IU TAB PO SCH (07:39)
[2016-09-08] MEDS: AMOXICILLIN/CLAVULANATE TAB 875 MG TAB PO SCH ×2 (07:39→16:48)
[2016-09-08] MEDS: SERTRALINE HCL 50 MG TAB PO SCH (07:40)
[2016-09-08] MEDS: INSULIN ASPART 100 UNITS/ML 3 ML PEN SC SCH ×4 (09:10→21:01)
[2016-09-08 10:48] VITALS: PULSE 64; O2SAT 96
--- NOTE | 2016-09-08 12:22 | Progress Note ---
Subjective Date of Service: Sep 08, 2016. Subjective Pt evaluation today including: conversation w/ patient, physical exam, chart review, lab review, review of studies, review of inpatient medication list Problem List Medical Problems: (1) Anemia Status: Acute (2) Cellulitis, leg Status: Acute (3) Peripheral edema Status: Acute (4) Pulmonary infiltrate on chest x-ray Status: Acute (5) Renal insufficiency Status: Acute (6) Stroke Status: Acute (7) Weakness Status: Acute Review of Systems Constitutional: + weakness, No chills, No fever Respiratory: No cough, No dyspnea on exertion, No sputum, No wheezing Cardiac: No chest pain, No orthopnea Abdomen: No constipation, No diarrhea, No nausea, No pain, No vomiting Musculoskeletal: No joint pain, No muscle pain Female : No dysuria, No urinary frequency Objective Vital Signs Date Time Temp Pulse Resp B/P Pulse Ox O2 Delivery O2 Flow Rate FiO2 09/08/16 07:45 Room Air 09/08/16 07:00 36.7 75 20 172/68 96 Room Air 09/08/16 00:00 Room Air 09/07/16 23:16 36.6 62 18 156/74 92 Room Air 09/07/16 20:30 58 09/07/16 16:00 Room Air 09/07/16 14:53 36.6 61 16 148/73 98 Room Air Physical Exam General Appearance: WD/WN, no apparent distress Neck: supple, no adenopathy Respiratory/Chest: chest non-tender, lungs clear Cardiovascular: no edema, no gallop Abdomen: non tender, soft Neurologic/Psychiatric: alert, + disoriented Laboratory Results Last 24 Hours Test 09/07/16 16:25 09/07/16 19:47 09/08/16 05:26 09/08/16 07:36 Bedside Glucose 145 mg/dl 219 mg/dl 99 mg/dl White Blood Count 8.83 K/uL Red Blood Count 3.45 M/uL Hemoglobin 8.9 g/dL Hematocrit 27.3 % Mean Corpuscular Volume 79.1 fL Mean Corpuscular Hemoglobin 25.8 pg Mean Corpuscular Hemoglobin Concent 32.6 g/dl RDW Standard Deviation 52.6 fL RDW Coefficient of Variation 18.2 % Platelet Count 287 K/uL Mean Platelet Volume 9.1 fL Sodium Level 136 mmol/L Potassium Level 4.3 mmol/L Chloride Level 100 mmol/L Carbon Dioxide Level 25 mmol/L Anion Gap 11.0 mmol/L Blood Urea Nitrogen 21 mg/dl Creatinine 1.50 mg/dl Est Creatinine Clear Calc Drug Dose 36.8 ml/min Estimated GFR () 36.7 Estimated GFR (Non- 31.7 BUN/Creatinine Ratio 13.9 Random Glucose 94 mg/dl Calcium Level 8.0 mg/dl Test 09/08/16 11:30 Bedside Glucose 158 mg/dl Assessment and Plan 86 y/o F who was admitted on 09/03 with AMS, weakness. AMS: pneumonia and bilateral lower extremity cellulitis, possible UTI POA Started on vanco/Zosyn and much improved, ongoing improvement without vanco ( last dose 09/05 12a) and changed zosyn to augmentin on 09/06 and continues to improve CXR noted with repeat CXR again noted for PNA UA + for leuk est, neg nitrites, no UTI sx and cx essentially neg CT head neg for acute issues Anemia: declining H/H over the last few days, but now improving Stool neg for blood Hesitant to hold xarelto given no clear bleeding and plts WNL, will continue to monitor Atrial fibrillation history/atrial flutter with variable block on presentation EKG--continue Xarelto 15 mg by mouth daily, hydralazine 50 mg by mouth 4 times a day, metoprolol tartrate 100 mg by mouth twice a day. Hx of lasix in the past, will resume with potassium chloride 20 mEq by mouth twice a day. Diabetes mellitus--continue Lantus insulin 8 units subcutaneous at 2000 hours, and place on Accu-Cheks before meals and at bedtime with NovoLog coverage. Hypothyroidism--continue levothyroxine sodium at 175 g by mouth daily. Hypercholesterolemia--continue simvastatin 40 mg by mouth every afternoon. GERD--change omeprazole 20 mg by mouth daily to pantoprazole 40 mg by mouth daily. Insomnia--continue melatonin 3 mg by mouth at bedtime. Depression--continue sertraline at 50 mg by mouth daily. CVA hx: son states issue with numbers, dates at baseline, and is at her baseline Dispo: Awaiting placement at this time
[2016-09-08 15:35] VITALS: BP 166/72; PULSE 68; TEMP 36.5; O2SAT 96
[2016-09-08 16:12] VITALS: O2SAT 96
[2016-09-08 19:56] VITALS: BP 169/61; PULSE 68; O2SAT 97
[2016-09-08] MEDS: FERROUS SULFATE 325 MG TAB PO SCH (20:00)
[2016-09-08] MEDS: SIMVASTATIN 40 MG TAB PO SCH (20:01)
[2016-09-08] MEDS: INSULIN GLARGINE SOLOSTAR 100 UNITS/ML 3 ML PEN SC SCH (21:00)
[2016-09-08 23:04] VITALS: BP 124/62; PULSE 62; TEMP 36.7; O2SAT 96
[2016-09-09] MEDS: LEVOTHYROXINE 175 MCG TAB PO SCH (05:24)
[2016-09-09] MEDS: INSULIN ASPART 100 UNITS/ML 3 ML PEN SC SCH ×4 (06:30→20:39)
[2016-09-09 07:42] VITALS: BP 145/67; PULSE 67; TEMP 36.6; O2SAT 94
[2016-09-09] MEDS: AMOXICILLIN/CLAVULANATE TAB 875 MG TAB PO SCH ×2 (10:06→16:51)
[2016-09-09] MEDS: CALCIUM 600MG + VIT D 400 IU TAB PO SCH (10:06)
[2016-09-09] MEDS: CEROVITE ADV FORMULA TAB PO SCH ×2 (10:07→20:23)
[2016-09-09] MEDS: SACCHAROMYCES BOUL (FLORASTOR) 250 MG CAP PO SCH (10:07)
[2016-09-09] MEDS: METOPROLOL TARTRATE 50 MG TAB PO SCH ×2 (10:07→20:24)
[2016-09-09] MEDS: PANTOprazole SOD 40 MG TAB PO SCH (10:08)
[2016-09-09] MEDS: OMEGA-3 (PURIFIED FISH OIL) 1 GM CAP PO SCH ×2 (10:08→20:24)
[2016-09-09] MEDS: AMLODIPINE BESYLATE 5 MG TAB PO SCH ×2 (10:08→20:23)
[2016-09-09] MEDS: SERTRALINE HCL 50 MG TAB PO SCH (10:09)
[2016-09-09 11:53] VITALS: BP 149/78
--- NOTE | 2016-09-09 14:49 | Progress Note ---
Subjective Date of Service: Sep 09, 2016. Subjective Pt evaluation today including: conversation w/ patient, physical exam, chart review, lab review, review of studies, review of inpatient medication list Problem List Medical Problems: (1) Anemia Status: Acute (2) Cellulitis, leg Status: Acute (3) Peripheral edema Status: Acute (4) Pulmonary infiltrate on chest x-ray Status: Acute (5) Renal insufficiency Status: Acute (6) Stroke Status: Acute (7) Weakness Status: Acute Review of Systems Constitutional: No chills, No fever Respiratory: No cough, No shortness of breath, No sputum, No wheezing Cardiac: No PND, No chest pain, No orthopnea Abdomen: No diarrhea, No nausea, No pain, No vomiting Musculoskeletal: + muscle pain, No joint pain Female : No dysuria, No urinary frequency Objective Vital Signs Date Time Temp Pulse Resp B/P Pulse Ox O2 Delivery O2 Flow Rate FiO2 09/09/16 11:53 149/78 09/09/16 10:00 Room Air 09/09/16 07:42 36.6 67 20 145/67 94 Room Air 09/09/16 00:00 Room Air 09/08/16 23:04 36.7 62 20 124/62 96 Room Air 09/08/16 19:56 68 17 169/61 97 Room Air 09/08/16 16:12 96 Room Air 09/08/16 15:35 36.5 68 20 166/72 96 Room Air Physical Exam General Appearance: WD/WN, no apparent distress Neck: supple, no adenopathy Cardiovascular: no edema, no gallop Abdomen: non tender, soft Extremities: + pertinent finding (redness and swelling bilateral lower legs, minimal pain to touch) Neurologic/Psychiatric: alert, + disoriented Laboratory Results Last 24 Hours Test 09/08/16 16:06 09/08/16 20:03 09/09/16 07:42 09/09/16 11:17 Bedside Glucose 142 mg/dl 196 mg/dl 104 mg/dl 147 mg/dl Assessment and Plan 86 y/o F who was admitted on 09/03 with AMS, weakness. AMS: pneumonia and bilateral lower extremity cellulitis, possible UTI POA Started on vanco/Zosyn and much improved, ongoing improvement without vanco ( last dose 09/05 12a) and changed zosyn to augmentin on 09/06 and continues to improve CXR noted with repeat CXR again noted for PNA UA + for leuk est, neg nitrites, no UTI sx and cx essentially neg CT head neg for acute issues Anemia: declining H/H over the last few days, but now improving Stool neg for blood Hesitant to hold xarelto given no clear bleeding and plts WNL, will continue to monitor Atrial fibrillation history/atrial flutter with variable block on presentation EKG--continue Xarelto 15 mg by mouth daily, hydralazine 50 mg by mouth 4 times a day, metoprolol tartrate 100 mg by mouth twice a day. Hx of lasix in the past, will resume with potassium chloride 20 mEq by mouth twice a day. Diabetes mellitus--continue Lantus insulin 8 units subcutaneous at 2000 hours, and place on Accu-Cheks before meals and at bedtime with NovoLog coverage. Hypothyroidism--continue levothyroxine sodium at 175 g by mouth daily. Hypercholesterolemia--continue simvastatin 40 mg by mouth every afternoon. GERD--change omeprazole 20 mg by mouth daily to pantoprazole 40 mg by mouth daily. Insomnia--continue melatonin 3 mg by mouth at bedtime. Depression--continue sertraline at 50 mg by mouth daily. CVA hx: son states issue with numbers, dates at baseline, and is at her baseline Dispo: Awaiting placement at this time
[2016-09-09 16:00] VITALS: O2SAT 93
[2016-09-09 16:22] VITALS: BP 129/73; PULSE 65; TEMP 36.9; O2SAT 93
[2016-09-09] MEDS: SIMVASTATIN 40 MG TAB PO SCH (20:25)
[2016-09-09] MEDS: FERROUS SULFATE 325 MG TAB PO SCH (20:25)
[2016-09-09] MEDS: INSULIN GLARGINE SOLOSTAR 100 UNITS/ML 3 ML PEN SC SCH (20:38)
[2016-09-09 22:55] VITALS: BP 131/64; PULSE 56; TEMP 36.9; O2SAT 95
[2016-09-10] VITALS (7 sets, daily range): BP systolic 125–161; BP diastolic 74–82; PULSE 58–76; TEMP 36.2–36.3; O2SAT 92–95
[2016-09-10] MEDS: LEVOTHYROXINE 175 MCG TAB PO SCH (05:19)
[2016-09-10] MEDS: AMOXICILLIN/CLAVULANATE TAB 875 MG TAB PO SCH ×2 (07:46→17:29)
[2016-09-10] MEDS: CALCIUM 600MG + VIT D 400 IU TAB PO SCH (07:47)
[2016-09-10] MEDS: PANTOprazole SOD 40 MG TAB PO SCH (07:47)
[2016-09-10] MEDS: METOPROLOL TARTRATE 50 MG TAB PO SCH ×2 (07:47→20:49)
[2016-09-10] MEDS: SACCHAROMYCES BOUL (FLORASTOR) 250 MG CAP PO SCH (07:48)
[2016-09-10] MEDS: AMLODIPINE BESYLATE 5 MG TAB PO SCH ×2 (07:48→20:48)
[2016-09-10] MEDS: OMEGA-3 (PURIFIED FISH OIL) 1 GM CAP PO SCH ×2 (07:48→20:49)
[2016-09-10] MEDS: SERTRALINE HCL 50 MG TAB PO SCH (07:48)
[2016-09-10] MEDS: CEROVITE ADV FORMULA TAB PO SCH ×2 (07:48→20:49)
[2016-09-10] MEDS: INSULIN ASPART 100 UNITS/ML 3 ML PEN SC SCH ×4 (08:58→20:46)
--- NOTE | 2016-09-10 12:56 | Progress Note ---
Subjective Date of Service: Sep 10, 2016. Subjective Pt evaluation today including: conversation w/ patient, physical exam, chart review, lab review, review of studies, review of inpatient medication list Problem List Medical Problems: (1) Anemia Status: Acute (2) Cellulitis, leg Status: Acute (3) Peripheral edema Status: Acute (4) Pulmonary infiltrate on chest x-ray Status: Acute (5) Renal insufficiency Status: Acute (6) Stroke Status: Acute (7) Weakness Status: Acute Review of Systems Constitutional: No chills, No fever Respiratory: No cough, No dyspnea on exertion, No sputum, No wheezing Cardiac: No chest pain, No orthopnea Abdomen: No constipation, No diarrhea, No nausea, No pain, No vomiting Musculoskeletal: No joint pain, No muscle pain Female : No dysuria, No urinary frequency Neurologic: No paralysis, No weakness Objective Vital Signs Date Time Temp Pulse Resp B/P Pulse Ox O2 Delivery O2 Flow Rate FiO2 09/10/16 12:47 58 125/78 09/10/16 08:00 95 Room Air 09/10/16 07:56 36.3 66 24 156/82 95 Room Air 09/10/16 07:50 Room Air 09/10/16 00:00 Room Air 09/09/16 22:55 36.9 56 20 131/64 95 Room Air 09/09/16 16:22 36.9 65 18 129/73 93 Room Air 09/09/16 16:00 93 Room Air Physical Exam General Appearance: WD/WN, no apparent distress Neck: supple, no adenopathy Respiratory/Chest: chest non-tender, lungs clear, normal breath sounds Cardiovascular: regular rate, rhythm, no gallop Abdomen: normal bowel sounds, soft Neurologic/Psychiatric: alert, normal mood/affect, + disoriented Laboratory Results Last 24 Hours Test 09/09/16 16:54 Bedside Glucose 122 mg/dl Assessment and Plan 86 y/o F who was admitted on 09/03 with AMS, weakness. AMS: pneumonia and bilateral lower extremity cellulitis, possible UTI POA Started on vanco/Zosyn and much improved, ongoing improvement without vanco ( last dose 09/05 12a) and changed zosyn to augmentin on 09/06 and continues to improve CXR noted with repeat CXR again noted for PNA UA + for leuk est, neg nitrites, no UTI sx and cx essentially neg CT head neg for acute issues Anemia: declining H/H over the last few days, but now improving Stool neg for blood Hesitant to hold xarelto given no clear bleeding and plts WNL, will continue to monitor Atrial fibrillation history/atrial flutter with variable block on presentation EKG--continue Xarelto 15 mg by mouth daily, hydralazine 50 mg by mouth 4 times a day, metoprolol tartrate 100 mg by mouth twice a day. Hx of lasix in the past, will resume with potassium chloride 20 mEq by mouth twice a day. Diabetes mellitus--continue Lantus insulin 8 units subcutaneous at 2000 hours, and [address] on Accu-Cheks before meals and at bedtime with NovoLog coverage. Hypothyroidism--continue levothyroxine sodium at 175 g by mouth daily. Hypercholesterolemia--continue simvastatin 40 mg by mouth every afternoon. GERD--change omeprazole 20 mg by mouth daily to pantoprazole 40 mg by mouth daily. Insomnia--continue melatonin 3 mg by mouth at bedtime. Depression--continue sertraline at 50 mg by mouth daily. CVA hx: son states issue with numbers, dates at baseline, and is at her baseline Dispo: Awaiting placement at this time
[2016-09-10] MEDS: INSULIN GLARGINE SOLOSTAR 100 UNITS/ML 3 ML PEN SC SCH (20:48)
[2016-09-10] MEDS: FERROUS SULFATE 325 MG TAB PO SCH (20:49)
[2016-09-10] MEDS: SIMVASTATIN 40 MG TAB PO SCH (20:50)
[2016-09-11 00:08] VITALS: BP 128/70; PULSE 55; TEMP 36.8; O2SAT 92
[2016-09-11] MEDS: LEVOTHYROXINE 175 MCG TAB PO SCH (06:10)
[2016-09-11 07:17] VITALS: BP 146/64; PULSE 61; TEMP 36.7; O2SAT 92
[2016-09-11] MEDS: CEROVITE ADV FORMULA TAB PO SCH (07:46)
[2016-09-11] MEDS: CALCIUM 600MG + VIT D 400 IU TAB PO SCH (07:46)
[2016-09-11] MEDS: SERTRALINE HCL 50 MG TAB PO SCH (07:46)
[2016-09-11] MEDS: PANTOprazole SOD 40 MG TAB PO SCH (07:47)
[2016-09-11] MEDS: OMEGA-3 (PURIFIED FISH OIL) 1 GM CAP PO SCH (07:47)
[2016-09-11] MEDS: SACCHAROMYCES BOUL (FLORASTOR) 250 MG CAP PO SCH (07:47)
[2016-09-11] MEDS: METOPROLOL TARTRATE 50 MG TAB PO SCH (07:48)
[2016-09-11] MEDS: AMLODIPINE BESYLATE 5 MG TAB PO SCH (07:48)
[2016-09-11] MEDS: AMOXICILLIN/CLAVULANATE TAB 875 MG TAB PO SCH (07:48)
[2016-09-11] MEDS: INSULIN ASPART 100 UNITS/ML 3 ML PEN SC SCH ×2 (08:47→12:24)
[2016-09-11 11:54] VITALS: TEMP 36.7; O2SAT 92
[2016-09-11] MEDS ORDERED: NRV5 PO (12:00)
[2016-09-11] MEDS ORDERED: AMOX1TAB43 PO (12:00)
--- NOTE | 2016-09-11 12:05 | Discharge Instructions ---
Discharge Instructions Admission Reason for Admission: Cellulitis Of Both Lower Extremities, Pneumonia Discharge Discharge Diagnosis / Problem: Cellulitis Discharge Goals Goal(s): Decrease discomfort (litis), Improve function, Increase independence, Improve disease control, Diagnostic testing, Therapeutic intervention, Prevent Disease Progression Activity Recommendations Activity Limitations: resume your previous activity Exercise/Sports Limitations: none . Instructions / Follow-Up Instructions / Follow-Up Patient to be discharged back to [facility] Please continue taking antibiotic augmentin twice a day for 5 more days for the cellulitis, keep legs elevated as much as possible For blood pressure, please take norvasc 5 mg twice a day No further changes in medications Please follow up with Dr Elizabeth in 1-2 weeks Current Hospital Diet Patient's current hospital diet: AHA Diet (Heart Healthy), Diabetes Type 2 Diet Discharge Diet Recommended Diet: Diabetes Type 2 Diet Pending Studies Studies pending at discharge: no Medical Emergencies . Who to Call and When: Medical Emergencies: If at any time you feel your situation is an emergency, please call 911 immediately. . Non-Emergent Contact Non-Emergency issues call your: Primary Care Provider Call Non-Emergent contact if: you have a fever . . "Provider Documentation" section prepared by Jerome Gaviria. VTE Core Measure Inpt VTE Proph given/why not?: Other Anticoagulation (Xarelto), SCD's
[2016-09-11 12:15] VITALS: BP 138/71; PULSE 69
--- NOTE | 2016-09-11 12:49 | Discharge Summary ---
Discharge Summary Date of Service Sep 11, 2016. Discharge Summary Admission Date: Sep 03, 2016 at 18:27 Discharge Date: Sep 11, 2016 Discharge Disposition: care home facility Principal Diagnosis: Cellulitis Immunizations: Have You Had Influenza Vaccine: N/A History of Tetanus Vaccine?: Unknown History of Pneumococcal: Yes History of Hepatitis B Vaccine: Unknown Medication Reconciliation New Medications: Amlodipine Besylate (Amlodipine Besylate) 5 Mg Tab 5 MG PO BID for 30 Days, #60 TAB Amoxicillin & Pot Clavulanate (Amoxicillin/Clavulanate P) 1 Tab Tab 875 MG PO BIDM for 5 Days, #10 TAB Continued Medications: Acetaminophen (Tylenol Arthritis Ext Rel) 650 Mg Cplt 650 MG PO Q8H PRN for Pain, CAP Calcium Carbonate (Calcium) 600 Mg Tab 1 TAB PO DAILY Docusate Sodium (Docusate Sodium) 100 Mg Cap 1 CAP PO BID for 15 Days, #30 CAP Ferrous Sulfate (Ferrous Sulfate) 325 Mg Tab 325 MG PO QPM Fish Oil ([place]-3) 1 Ea Cap 2 TAB PO BID, CAP Hydralazine HCl (Hydralazine HCl) 50 Mg Tab 50 MG PO QID, #240 TAB 3 Refills Insulin Glargine (Lantus) 100 Unit/Ml Inj 8 UNIT SC QPM, VIAL Insulin Lispro (Human) (Humalog Kwikpen) 100 Unit/Ml Inj 10 UNIT SC BID Levothyroxine Sodium (Levothyroxine Sodium) 175 Mcg Tab 175 MCG PO QAM, #29 Metoprolol Tartrate (Lopressor) 50 Mg Tab 100 MG PO BID, TAB Ocuvite Preservision (Ocuvite Preservision) 1 Tab Tab 1 TAB PO BID, TAB Omeprazole (Prilosec) 20 Mg Cap 20 MG PO DAILY, CAP Polyethylene (Miralax) 17 Gm Pow Sennosides-Docusate Sodium (Sennalax-S) 1 Tab Tab 1 TAB PO DAILY Sertraline HCl (Sertraline HCl) 50 Mg Tab 1 TAB PO DAILY, #28 Simvastatin (Zocor) 40 Mg Tab 40 MG PO QPM, TAB Tramadol (Ultram) 50 Mg Tab 50 MG PO Q6HPRN, TAB PRN PAIN Discharge Exam Review of Systems: Constitutional: No chills, No fever Respiratory: No cough, No sputum Cardiovascular: No chest pain, No orthopnea Abdomen: No diarrhea, No nausea, No pain, No vomiting Musculoskeletal: No joint pain, No muscle pain Genitourinary - Female: No dysuria, No urinary frequency, No urinary urgency Physical Exam: General Appearance: WD/WN, no apparent distress Neck: supple, no adenopathy Respiratory/Chest: chest non-tender, lungs clear, normal breath sounds Cardiovascular: regular rate, rhythm, no edema, no gallop Abdomen / GI: non tender, soft Neurologic/Psychiatric: alert, normal mood/affect Hospital Course 86 y/o F who was admitted on 09/03 with AMS, weakness. AMS: pneumonia and bilateral lower extremity cellulitis, possible UTI POA Started on vanco/zosyn and much improved, ongoing improvement without vanco ( last dose 09/05 12a) and changed zosyn to augmentin on 09/06 and continues to improve, will discharge for 5 more days of augmentin end date 09/16 CXR noted and repeat CXR again noted for PNA UA + for leuk est, neg nitrites, no UTI sx and cx essentially neg CT head neg for acute issues Anemia: declining H/H over the last few days, but now improving Stool neg for blood Hesitant to hold xarelto given no clear bleeding and plts WNL, will continue to monitor Atrial fibrillation history/atrial flutter with variable block on presentation EKG--continue Xarelto 15 mg by mouth daily, hydralazine 50 mg by mouth 4 times a day, metoprolol tartrate 100 mg by mouth twice a day. Hx of lasix in the past, will resume with potassium chloride 20 mEq by mouth twice a day. Diabetes mellitus--continue Lantus insulin 8 units subcutaneous at 2000 hours, and place on Accu-Cheks before meals and at bedtime with NovoLog coverage. Hypothyroidism--continue levothyroxine sodium at 175 g by mouth daily. Hypercholesterolemia--continue simvastatin 40 mg by mouth every afternoon. GERD--change omeprazole 20 mg by mouth daily to pantoprazole 40 mg by mouth daily. Insomnia--continue melatonin 3 mg by mouth at bedtime. Depression--continue sertraline at 50 mg by mouth daily. CVA hx: son states issue with numbers, dates at baseline, and is at her baseline Dispo: Awaiting placement at this time Total Time Spent: Greater than 30 minutes This includes examination of the patient, discharge planning, medication reconciliation, and communication with other providers. Discharge Instructions Please refer to the electronic Patient Visit Report (Discharge Instructions) for additional information. Additional Copies To Marcellus Elizabeth M.D.
== END 2016-09-11 13:49 | DRG 602 ==
LOC: ENRESERVDT → ENRESERVTM → EDBD 13:31 → C.EDC 13:32 → C.4E 18:27
PROVIDERS: ADMIT Hospitalist; ATTEND Hospitalist
DX: L03.115 Cellulitis of right lower limb (principal); J18.9 Pneumonia, unspecified organism; I48.92 Unspecified atrial flutter; N39.0 Urinary tract infection, site not specified; Z68.41 Body mass index [BMI] 40.0-44.9, adult; L03.116 Cellulitis of left lower limb; I48.2 Chronic atrial fibrillation; E11.9 Type 2 diabetes mellitus without complications; E03.9 Hypothyroidism, unspecified; E78.00 Pure hypercholesterolemia, unspecified; K21.9 Gastro-esophageal reflux disease without esophagitis; G47.00 Insomnia, unspecified; F32.9 Major depressive disorder, single episode, unspecified; E66.9 Obesity, unspecified; Z86.73 Personal history of transient ischemic attack (TIA), and cerebral infarction without residual deficits; Z79.4 Long term (current) use of insulin; Z79.899 Other long term (current) drug therapy; Z79.01 Long term (current) use of anticoagulants; Z88.5 Allergy status to narcotic agent; Z88.8 Allergy status to other drugs, medicaments and biological substances; I12.9 Hypertensive chronic kidney disease with stage 1 through stage 4 chronic kidney disease, or unspecified chronic kidney disease; D64.9 Anemia, unspecified; R60.9 Edema, unspecified; N18.3 Chronic kidney disease, stage 3 (moderate); E55.9 Vitamin D deficiency, unspecified; E04.2 Nontoxic multinodular goiter; R53.83 Other fatigue

== ENCOUNTER → 2016-09-15 | Outpatient (CLI) | payer BC ==
[~2016-09-15] MED LIST changes: +AMOX1TAB43 PO; +CALC-393 PO; -CALCTAB5 PO; -ERGO1CAP35 PO; -FURO-85 PO; -HMLI SC; +INSU100I2 SC; -LEVO125T4 PO; +LEVO175T3 PO; +LSX80 PO; -MELA3CAP PO; +NRV5 PO; +POTA10CA28 PO; -SERT50TA PO; +ZLF/50 PO
[2016-09-15 08:34] LABS: BASO % 0.3 %; BASO ABS # 0.03 K/uL (0-0.2); COMPLETE YES; EOS % 1.8 %; HEMATOCRIT 29.2 % (37-47); IG% 0.2 %; LYMPH % 12.1 %; LYMPH ABS # 1.12 K/uL (1.2-3.4); MEAN CELL VOLUME 80.2 fL (80-100); MEAN CORPUSCULAR HGB CONC 31.2 g/dl (32-36); MEAN PLATELET VOLUME 9.4 fL (7.4-10.4); MONO % 10.7 %; NEUT % 74.9 %; PLATELET COUNT 398 K/uL (130-400); RED BLOOD COUNT 3.64 M/uL (4.2-5.4); WHITE BLOOD COUNT 9.28 K/uL (4.8-10.8)
[2016-09-15 08:41] LABS: BLOOD UREA NITROGEN 27 mg/dl (7-18); CALCIUM 8.5 mg/dl (8.5-10.1); CARBON DIOXIDE 30 mmol/L (21-32); CHLORIDE 100 mmol/L (98-107); GLUCOSE 72 mg/dl (70-99); MAGNESIUM 2.1 mg/dl (1.8-2.4); POTASSIUM 3.9 mmol/L (3.5-5.1); SODIUM 136 mmol/L (136-145)
[2016-09-15 09:56] LABS: ESTIMATED AVERAGE GLUCOSE 126 mg/dl; HA1C FLAG Normal (Normal)
== END ==
LOC: C.LABCC 08:07
PROVIDERS: ATTEND Internal Medicine
DX: I10 Essential (primary) hypertension (principal); E11.9 Type 2 diabetes mellitus without complications; D64.9 Anemia, unspecified; E83.42 Hypomagnesemia

== ENCOUNTER → 2016-09-18 | Outpatient (CLI) | payer BC ==
[2016-09-18 08:38] LABS: BASO % 0.7 %; BASO ABS # 0.06 K/uL (0-0.2); EOS % 2.3 %; HEMATOCRIT 28.7 % (37-47); IG% 0.4 %; LYMPH % 14.3 %; LYMPH ABS # 1.16 K/uL (1.2-3.4); MEAN CELL VOLUME 80.8 fL (80-100); MEAN CORPUSCULAR HEMOGLOBIN 25.1 pg (25-34); MEAN PLATELET VOLUME 9.4 fL (7.4-10.4); MONO % 11.5 %; NEUT % 70.8 %; PLATELET COUNT 388 K/uL (130-400); RED BLOOD COUNT 3.55 M/uL (4.2-5.4); WHITE BLOOD COUNT 8.11 K/uL (4.8-10.8)
[2016-09-18 08:49] LABS: ALT/SGPT 13 U/L (12-78); BLOOD UREA NITROGEN 23 mg/dl (7-18); BUN/CREATININE RATIO 17.6 (10-20); CALCIUM 8.5 mg/dl (8.5-10.1); CARBON DIOXIDE 27 mmol/L (21-32); CHLORIDE 98 mmol/L (98-107); GLUCOSE 62 mg/dl (70-99); POTASSIUM 3.9 mmol/L (3.5-5.1); SODIUM 136 mmol/L (136-145)
[2016-09-18 08:52] LABS: ALB/GLOB RATIO 0.6 (0.9-2); ALKALINE PHOSPHATASE 68 U/L (45-117); AST/SGOT 11 U/L (15-37)
[2016-09-18 09:57] LABS: COMPLETE YES; HYPOCHROMIA PRESENT
== END ==
LOC: C.LABCC 07:49
PROVIDERS: ATTEND Internal Medicine
DX: R06.02 Shortness of breath (principal)

== ENCOUNTER → 2016-09-23 | Outpatient (CLI) | payer BC ==
[2016-09-23 08:36] LABS: BLOOD UREA NITROGEN 33 mg/dl (7-18); BUN/CREATININE RATIO 23.5 (10-20); CALCIUM 8.5 mg/dl (8.5-10.1); CARBON DIOXIDE 30 mmol/L (21-32); CHLORIDE 96 mmol/L (98-107); GLUCOSE 81 mg/dl (70-99); POTASSIUM 3.6 mmol/L (3.5-5.1); SODIUM 137 mmol/L (136-145)
== END ==
LOC: C.LABCC 08:07
PROVIDERS: ATTEND Internal Medicine
DX: J18.9 Pneumonia, unspecified organism (principal); R05 Cough

== ENCOUNTER → 2016-09-26 | Outpatient (CLI) | payer BC ==
[2016-09-26 08:13] LABS: BLOOD UREA NITROGEN 38 mg/dl (7-18); BUN/CREATININE RATIO 25.1 (10-20); CALCIUM 8.6 mg/dl (8.5-10.1); CARBON DIOXIDE 27 mmol/L (21-32); CHLORIDE 99 mmol/L (98-107); GLUCOSE 76 mg/dl (70-99); POTASSIUM 3.5 mmol/L (3.5-5.1); SODIUM 139 mmol/L (136-145)
== END ==
LOC: C.LABCC 07:41
PROVIDERS: ATTEND Internal Medicine
DX: I50.9 Heart failure, unspecified (principal)

== ENCOUNTER → 2016-09-29 | Outpatient (CLI) | payer BC ==
[2016-09-29 08:41] LABS: BLOOD UREA NITROGEN 41 mg/dl (7-18); BUN/CREATININE RATIO 25.5 (10-20); CALCIUM 8.6 mg/dl (8.5-10.1); CARBON DIOXIDE 32 mmol/L (21-32); CHLORIDE 96 mmol/L (98-107); GLUCOSE 85 mg/dl (70-99); POTASSIUM 3.7 mmol/L (3.5-5.1); SODIUM 137 mmol/L (136-145)
== END ==
LOC: C.LABCC 08:10
PROVIDERS: ATTEND Internal Medicine
DX: N18.9 Chronic kidney disease, unspecified (principal)

== ENCOUNTER → 2016-10-01 | Outpatient (CLI) | payer BC ==
[~2016-10-01] MED LIST changes: +CALCTAB5 PO; +ERGO1CAP35 PO; +FURO-85 PO; +HMLI SC; +LEVO125T4 PO; +MELA3CAP PO; +SERT50TA PO; +levoxyl PO
[2016-10-01 09:39] LABS: BLOOD UREA NITROGEN 45 mg/dl (7-18); BUN/CREATININE RATIO 26.4 (10-20); CALCIUM 8.8 mg/dl (8.5-10.1); CARBON DIOXIDE 29 mmol/L (21-32); CHLORIDE 97 mmol/L (98-107); GLUCOSE 109 mg/dl (70-99); POTASSIUM 3.5 mmol/L (3.5-5.1); SODIUM 137 mmol/L (136-145)
== END ==
LOC: C.LABCC 08:14
PROVIDERS: ATTEND Internal Medicine
DX: I10 Essential (primary) hypertension (principal)

== ENCOUNTER → 2016-10-02 | Outpatient (CLI) | payer BC ==
[~2016-10-02] MED LIST changes: -CALCTAB5 PO; -ERGO1CAP35 PO; -FURO-85 PO; -HMLI SC; -LEVO125T4 PO; -MELA3CAP PO; -SERT50TA PO; -levoxyl PO
--- NOTE | 2016-10-02 09:45 | DIAGNOSTIC IMAGING REPORT ---
CT OF THE CHEST WITHOUT IV CONTRAST CLINICAL HISTORY: Abnormal findings on CT. Pulmonary nodules. COMPARISON STUDY: Chest CTs November 28, 2015 and June 03, 2016 and PET/CT December 31, 2015. CT DOSE: 618.61 mGy.cm TECHNIQUE: Axial images of the chest were obtained without IV contrast. Images were reviewed in the axial, sagittal, and coronal planes. IV contrast was not administered for this examination. FINDINGS: No enlarged axillary, mediastinal or hilar lymph nodes are present. The heart is moderately enlarged. This extensive coronary artery calcification. No pneumothorax or pleural effusion is present. Lungs are suboptimally assessed due to respiratory motion. Left lower lobe opacity likely reflects atelectasis. The previously described 1.8 cm groundglass nodule within the right lower lobe shown on image 158 of [address] of November 28, 2015. This is subpleural in location. Several additional pulmonary nodules are unchanged since initial chest CT as well, including a 6 mm right upper lobe nodule shown image 127. No new nodules are present. Degenerative disc disease at T4-T5 is unchanged. A low-attenuation left adrenal nodule is unchanged and consistent with an adenoma. A few hyperdense bilateral renal lesions are suboptimally assessed on this unenhanced exam but may reflect hyperdense cysts. There is a small gallstone within the gallbladder. IMPRESSION: 1. No significant change in multiple pulmonary nodules, including a 1.8 cm groundglass nodule within the right lower lobe. This is unchanged since CT of November 28, 2015 but suggestive of a low-grade malignancy. 2. No thoracic lymphadenopathy. Moderate cardiomegaly and extensive coronary artery calcification. Electronically signed by: Michele Hanna M.D. 10/02/2016 9:43 AM Dictated Date/Time: 10/02/2016 9:30 AM
== END | disposition home or self-care (01) ==
LOC: C.CTS 09:06
PROVIDERS: ATTEND Surgery
DX: R91.8 Other nonspecific abnormal finding of lung field (principal); I51.7 Cardiomegaly; I25.10 Atherosclerotic heart disease of native coronary artery without angina pectoris

== ENCOUNTER → 2016-10-06 | Outpatient (CLI) | payer BC ==
[2016-10-06 19:34] LABS: URINE APPEARANCE CLOUDY (CLEAR); URINE BILIRUBIN NEG (NEG); URINE COLOR YELLOW; URINE NITRITE NEG (NEG); URINE PH 6.5 (4.5-7.5); URINE SPECIFIC GRAVITY 1.012 (1.000-1.030); UROBILINOGEN NEG (NEG)
[2016-10-06 19:36] LABS: MANUAL MICROSCOPIC REQUIRED? NO; REVIEW REQ? YES
== END ==
LOC: C.LABCC 17:30
PROVIDERS: ATTEND Internal Medicine
DX: R41.82 Altered mental status, unspecified (principal)

== ENCOUNTER 2016-10-07 12:02 | Emergency (ER) | payer BC ==
[~2016-10-07 12:02] MED LIST changes: -LSX80 PO; -POTA10CA28 PO; -XRL15 PO
--- NOTE | 2016-10-07 12:16 | EMERGENCY ROOM VISIT NOTE ---
History Report prepared by Alexsandra: Chele Herman Under the Supervision of: Dr. Noble Sullivan D.O. First contact with patient: 12:07 Stated Complaint: AMS History of Present Illness The patient is an 86 year old female who presents to the Emergency Room with complaints of persistent altered mental status that started 3 days ago. Per the nursing staff, the patient is from [facility], and she was here September 03 for similar symptoms, and was thought to have had a CVA. The patient is thought to have had another CVA starting 3 days ago. The patient for the past 3 days has been confused and lethargic. Any fevers, headaches, abdominal pain, recent falls, or trauma were denied. She has a history of atrial fibrillation and is coagulated on Xarelto. The patient's Accu-check was 150 in route. Her urine yesterday revealed high leukocytes. History is limited secondary to patient's altered mental status. Source of History: nursing staff History Limited By: other (altered mental status) Onset: 3 days ago Position: other (global - altered mental status) Timing: other (persistent) Associated Symptoms: + fatigue, No abdominal pain, No fevers, No headache Note: Associated symptoms: Confused. Denies falls or trauma. Review of Systems ROS limited secondary to patient's altered mental status. Past Medical & Surgical Medical Problems: (1) Acute post-hemorrhagic anemia (2) Atrial fibrillation (3) Cellulitis of both lower extremities (4) Coumadin toxicity (5) CVA (cerebral vascular accident) (6) Diabetes (7) Mediastinal adenopathy (8) Pneumonia Family History Noncontributory secondary to age Social History Smoking Status: Never Smoker Drug Use: none Marital Status: Housing Status: assisted living Occupation Status: retired Current/Historical Medications Scheduled Calcium Carbonate (Calcium), 1 TAB PO DAILY Docusate Sodium (Docusate Sodium), 1 CAP PO BID Ferrous Sulfate (Ferrous Sulfate), 325 MG PO QPM Fish Oil ([place]-3), 2 TAB PO BID Furosemide (Furosemide), 80 MG PO DAILY Hydralazine HCl (Hydralazine HCl), 50 MG PO QID Insulin Glargine (Lantus), 8 UNIT SC QPM Insulin Lispro (Human) (Humalog Kwikpen), 10 UNIT SC BID Levothyroxine Sodium (Levothyroxine Sodium), 175 MCG PO QAM Metoprolol Tartrate (Lopressor), 100 MG PO BID Ocuvite Preservision (Ocuvite Preservision), 1 TAB PO BID Omeprazole (Prilosec), 20 MG PO DAILY Potassium Chloride (Micro-K Ext Rel), 10 MEQ PO DAILY Rivaroxaban (Xarelto), 15 MG PO QPM Sennosides-Docusate Sodium (Sennalax-S), 1 TAB PO DAILY Sertraline HCl (Sertraline HCl), 1 TAB PO DAILY Simvastatin (Zocor), 40 MG PO QPM Tramadol (Ultram), 50 MG PO Q6HPRN Scheduled PRN Acetaminophen (Tylenol Arthritis Ext Rel), 650 MG PO Q8H PRN for Pain Miscellaneous Medications Polyethylene (Miralax) Allergies Coded Allergies: Codeine (Verified Adverse Reaction, Mild, nausea, 09/03/16) Hydralazine (Verified Adverse Reaction, Mild, leg cramps currently taking a lower dose without problems, 09/03/16) Oxycodone (Verified Adverse Reaction, Mild, nausea, 09/03/16) Statins (Verified Adverse Reaction, Mild, leg cramps lack of interest, ) takes simvastatin now Physical Exam Vital Signs Date Time Temp Pulse Resp B/P Pulse Ox O2 Delivery O2 Flow Rate FiO2 10/07/16 15:00 89 18 144/86 97 10/07/16 14:00 88 19 167/119 99 Room Air 10/07/16 12:50 92 10/07/16 12:28 95 Room Air 10/07/16 12:28 37.1 86 24 169/95 95 Room Air Physical Exam GENERAL: Patient is awake, looking around room but only interactive intermittently. EYES: The conjunctivae are clear. The pupils are round and reactive. EARS, NOSE, MOUTH AND THROAT: The nose is without any evidence of any deformity. Mucous membranes are dry. NECK: The neck is nontender and supple. RESPIRATORY: Normal respiratory effort is noted there is no evidence of wheezing rhonchi or rales CARDIOVASCULAR: Heart sounds irregular to auscultation, there was a loud systolic murmur noted to auscultation. GASTROINTESTINAL: The abdomen is soft. Bowel sounds are present in all quadrants. Abdomen is nontender MUSCULOSKELETAL/EXTREMITIES: There is no evidence of gross deformity full range of motion is noted in the hips and shoulders SKIN: Erythema in both lower extremities. Trace pedal edema noted bilaterally. NEUROLOGIC: Patient interacts intermittently with "yes/no" questioning. Is aphasic. Strength appears symmetric but diminished bilaterally. Medical Decision & Procedures ER Provider Diagnostic Interpretation: Radiology results as stated below per my review and radiologist interpretation: CT HEAD WITHOUT CONTRAST (CT) CLINICAL HISTORY: Altered mental status. Weakness. COMPARISON STUDY: 09/03/2016 TECHNIQUE: Axial CT of the brain is performed from the vertex to the skull base. IV contrast was not administered for this examination. CT DOSE: 537.48 mGy.cm FINDINGS: No intra or extra-axial mass lesions are visualized. There is no CT evidence of acute cortical infarction. There is no evidence of midline shift. There is no acute hemorrhage. No calvarial fractures are visualized. There are patchy white matter hypodensities likely on a small vessel basis. There is an old right frontal infarct. There is no evidence of pathologic ventricular dilatation. There is no evidence of acute sinusitis IMPRESSION: No acute intracranial findings Electronically signed by: Mat Cantor M.D. 10/07/2016 1:31 PM Dictated Date/Time: 10/07/2016 1:30 PM CHEST ONE VIEW PORTABLE CLINICAL HISTORY: Altered mental status. Weakness. COMPARISON STUDY: 09/03/2016 FINDINGS: The study is rotated. The heart remains enlarged. There is indistinctness left heart border, likely secondary to a fat pad. A small pleural effusion or left basilar atelectasis/consolidation cannot be excluded[ aeration left lung base has improved compared the prior study. The right lung is clear. IMPRESSION: Mild cardiomegaly. Improving aeration of the left lung base. Electronically signed by: Mat Cantor M.D. 10/07/2016 2:03 PM Dictated Date/Time: 10/07/2016 2:01 PM Laboratory Results 10/07/16 12:50 Red Blood Count 4.68, Mean Corpuscular Volume 78.8, Mean Corpuscular Hemoglobin 25.2, Mean Corpuscular Hemoglobin Concent 32.0, Mean Platelet Volume 10.1, Neutrophils (%) (Auto) 83.0, Lymphocytes (%) (Auto) 9.6, Monocytes (%) (Auto) 6.9, Eosinophils (%) (Auto) 0.2, Basophils (%) (Auto) 0.1, Neutrophils # (Auto) 9.71, Lymphocytes # (Auto) 1.12, Monocytes # (Auto) 0.81, Eosinophils # (Auto) 0.02, Basophils # (Auto) 0.01 10/07/16 12:50 Test 10/07/16 12:24 10/07/16 12:50 Bedside Glucose 159 mg/dl (70-90) White Blood Count 11.69 K/uL (4.8-10.8) Red Blood Count 4.68 M/uL (4.2-5.4) Hemoglobin 11.8 g/dL (12.0-16.0) Hematocrit 36.9 % (37-47) Mean Corpuscular Volume 78.8 fL (80-100) Mean Corpuscular Hemoglobin 25.2 pg (25-34) Mean Corpuscular Hemoglobin Concent 32.0 g/dl (32-36) Platelet Count 386 K/uL (130-400) Mean Platelet Volume 10.1 fL (7.4-10.4) Neutrophils (%) (Auto) 83.0 % Lymphocytes (%) (Auto) 9.6 % Monocytes (%) (Auto) 6.9 % Eosinophils (%) (Auto) 0.2 % Basophils (%) (Auto) 0.1 % Neutrophils # (Auto) 9.71 K/uL (1.4-6.5) Lymphocytes # (Auto) 1.12 K/uL (1.2-3.4) Monocytes # (Auto) 0.81 K/uL (0.11-0.59) Eosinophils # (Auto) 0.02 K/uL (0-0.5) Basophils # (Auto) 0.01 K/uL (0-0.2) RDW Standard Deviation 52.7 fL (36.4-46.3) RDW Coefficient of Variation 18.2 % (11.5-14.5) Immature Granulocyte % (Auto) 0.2 % Immature Granulocyte # (Auto) 0.02 K/uL (0.00-0.02) Prothrombin Time 11.1 SECONDS (9.0-12.0) Prothromb Time International Ratio 1.0 (0.9-1.1) Activated Partial Thromboplast Time 25.2 SECONDS (21.0-31.0) Partial Thromboplastin Ratio 1.0 Anion Gap 12.0 mmol/L (3-11) Estimated GFR () 31.5 Estimated GFR (Non- 27.2 BUN/Creatinine Ratio 31.1 (10-20) Calcium Level 8.9 mg/dl (8.5-10.1) Magnesium Level 2.7 mg/dl (1.8-2.4) Total Bilirubin 0.7 mg/dl (0.2-1) Direct Bilirubin 0.2 mg/dl (0-0.2) Aspartate Amino Transf (AST/SGOT) 15 U/L (15-37) Alanine Aminotransferase (ALT/SGPT) 13 U/L (12-78) Alkaline Phosphatase 89 U/L (45-117) Troponin I 0.026 ng/ml (0-0.045) Total Protein 7.4 gm/dl (6.4-8.2) Albumin 2.7 gm/dl (3.4-5.0) Thyroid Stimulating Hormone (TSH) 0.609 uIu/ml (0.300-4.500) Laboratory results per my review. Medications Administered Medications (Trade) Dose Ordered Sig/Gianna Route Start Time Stop Time Status Last Admin Dose Admin Sodium Chloride (Nss 1000ml) 1,000 ml @ 999 mls/hr Q1H1M STAT IV 10/07/16 12:25 10/07/16 13:25 DC 10/07/16 12:58 999 MLS/HR Ceftriaxone Sodium (Rocephin Inj) 1 gm NOW STAT IV 10/07/16 12:25 10/07/16 12:27 DC 10/07/16 12:58 1 GM ECG Indication: altered mental status Rate (beats per minute): 82 Rhythm: atrial fibrillation Findings: T-wave inversion (lateral), other (no PVCs) Change: no significant change (from Sep 03 of this year) ED Course 1215: The patient was evaluated in room B7. A complete history and physical examination were performed. 1225: Ordered Rocephin Inj 1 gm IV, NSS 1000 ml @ 999 mls/hr IV. 1439: Upon reevaluation, the patient is resting comfortably. I discussed the results and treatment plan with her. She verbalized agreement of the treatment plan. She was discharged back to [facility]. Medical Decision Differential diagnosis: Etiologies such as metabolic, infection, hypoglycemia, electrolyte abnormalities , cardiac sources, intracerebral event, toxicologic, neurologic, as well as others were entertained. Nursing notes reviewed. Additional history is obtained from the patient's family members. The patient is an 86-year-old female who has a history of atrial fibrillation as well as stroke who presented to the emergency department for an evaluation of altered mental status. The patient has had symptoms for the last 2-3 days. The patient's family member state that she has episodes where she becomes very lethargic. She also has "staring" episodes and then appears agitated at times. According the nursing documentation the patient was lethargic. The patient had outpatient laboratory studies as well as urinalysis the day before. The patient was found have urinary tract infection at that time. She was started on antibiotics in the emergency department and also given a fluid bolus. There is concern that the patient may have had another stroke. I discussed the patient's laboratory and radiographic studies with her family members. At this time I'm unsure how best to proceed. I discussed my concerns with her family members. I would think that a stroke since her symptoms have been ongoing for more than 24 hours would have shown itself on a CAT scan. She appears to be moving everything symmetrically. She has no facial droop. The patient's white blood cell count was mildly elevated compared to the day before. Her urinalysis I do feel is the source of this elevation in her white blood cell. She doesn't a history of recent pneumonia however this appears to be improving on chest x- ray. I discussed further treatment as well as workup with the family members. I offered to have the patient evaluated by the hospitalist but I encouraged him to have another family meeting with the provider at the intermediate as well as the intermediate staff to discuss any further treatment. They do not feel the patient would want life-sustaining measures as far as feeding tube CPR or intubation but they do feel that their mother would want treatment in the form of antibiotics or possibly even IV fluids because of her decreased by mouth intake. I do feel this is a complicated situation. I discussed this case with the emergency Department bilingual patient support caseworker. They were able to discuss the case further with the intermediate staff. My concerns were conveyed and I do fill the patient would do well with further IV antibiotic treatment and possibly IV fluids. I do feel a conversation of further care such as hospice would be a good idea but in the short-term I encouraged him to keep a close eye on the patient and to feel free to have her sent back to the emergency department immediately if symptoms change worsen or the need arises. Impression Primary Impression: Altered mental status Additional Impressions: Urinary tract infection Dehydration Scribe Attestation The scribe's documentation has been prepared under my direction and personally reviewed by me in its entirety. I confirm that the note above accurately reflects all work, treatment, procedures, and medical decision making performed by me. Departure Information Dispostion Home / Self-Care Referrals [facility] (PCP) Forms HOME CARE DOCUMENTATION FORM, IMPORTANT VISIT INFORMATION Patient Instructions [facility], Urinary Tract Infecs Women Additional Instructions I would recommend continuing the Rocephin 1 gram IV every 24 hours for urinary tract infection. Follow-up with the urinary culture within the next 48 hours to ensure the proper antibiotic has been started. Continue all medications as prescribed. Problem Qualifiers Primary Impression: Altered mental status Altered mental status type: unspecified Qualified Codes: R41.82 - Altered mental status, unspecified Additional Impressions: Urinary tract infection Urinary tract infection type: acute cystitis Hematuria presence: without hematuria Qualified Codes: N30.00 - Acute cystitis without hematuria
[2016-10-07] MEDS ORDERED: CEFTRIAXONE SOD INJ 1 GM ADDVIAL IV STA (12:25)
[2016-10-07] MEDS ORDERED: SODIUM CHLORIDE 0.9% 1000ML 1,000 ML IV STA (12:25)
[2016-10-07 12:28] VITALS: TEMP 37.1; O2SAT 95
[2016-10-07 13:01] LABS: BASO % 0.1 %; BASO ABS # 0.01 K/uL (0-0.2); COMPLETE YES; EOS % 0.2 %; HEMATOCRIT 36.9 % (37-47); IG% 0.2 %; LYMPH % 9.6 %; LYMPH ABS # 1.12 K/uL (1.2-3.4); MEAN CELL VOLUME 78.8 fL (80-100); MEAN CORPUSCULAR HEMOGLOBIN 25.2 pg (25-34); MEAN PLATELET VOLUME 10.1 fL (7.4-10.4); MONO % 6.9 %; PLATELET COUNT 386 K/uL (130-400); RED BLOOD COUNT 4.68 M/uL (4.2-5.4); WHITE BLOOD COUNT 11.69 K/uL (4.8-10.8)
[2016-10-07 13:15] LABS: PROTHROMBIN TIME (PATIENT) 11.1 SECONDS (9.0-12.0)
[2016-10-07 13:18] LABS: ALT/SGPT 13 U/L (12-78); BLOOD UREA NITROGEN 53 mg/dl (7-18); BUN/CREATININE RATIO 31.1 (10-20); CALCIUM 8.9 mg/dl (8.5-10.1); CARBON DIOXIDE 28 mmol/L (21-32); CHLORIDE 99 mmol/L (98-107); GLUCOSE 160 mg/dl (70-99); MAGNESIUM 2.7 mg/dl (1.8-2.4); POTASSIUM 3.7 mmol/L (3.5-5.1); SODIUM 139 mmol/L (136-145)
[2016-10-07 13:29] LABS: ALKALINE PHOSPHATASE 89 U/L (45-117); AST/SGOT 15 U/L (15-37); THYROID STIMULATING HORMONE 0.609 uIu/ml (0.300-4.500)
--- NOTE | 2016-10-07 13:32 | DIAGNOSTIC IMAGING REPORT ---
CT HEAD WITHOUT CONTRAST (CT) CLINICAL HISTORY: Altered mental status. Weakness. COMPARISON STUDY: 09/03/2016 TECHNIQUE: Axial CT of the brain is performed from the vertex to the skull base. IV contrast was not administered for this examination. CT DOSE: 537.48 mGy.cm FINDINGS: No intra or extra-axial mass lesions are visualized. There is no CT evidence of acute cortical infarction. There is no evidence of midline shift. There is no acute hemorrhage. No calvarial fractures are visualized. There are patchy white matter hypodensities likely on a small vessel basis. There is an old right frontal infarct. There is no evidence of pathologic ventricular dilatation. There is no evidence of acute sinusitis IMPRESSION: No acute intracranial findings Electronically signed by: Mat Cantor M.D. 10/07/2016 1:31 PM Dictated Date/Time: 10/07/2016 1:30 PM
--- NOTE | 2016-10-07 14:04 | DIAGNOSTIC IMAGING REPORT ---
CHEST ONE VIEW PORTABLE CLINICAL HISTORY: Altered mental status. Weakness. COMPARISON STUDY: 09/03/2016 FINDINGS: The study is rotated. The heart remains enlarged. There is indistinctness left heart border, likely secondary to a fat pad. A small pleural effusion or left basilar atelectasis/consolidation cannot be excluded[ aeration left lung base has improved compared the prior study. The right lung is clear. IMPRESSION: Mild cardiomegaly. Improving aeration of the left lung base. Electronically signed by: Mat Cantor M.D. 10/07/2016 2:03 PM Dictated Date/Time: 10/07/2016 2:01 PM
[2016-10-07] MEDS ORDERED: LSX80 PO (14:06)
[2016-10-07] MEDS ORDERED: XRL15 PO (14:06)
[2016-10-07] MEDS ORDERED: POTA10CA28 PO (14:06)
[2016-10-07 15:00] VITALS: BP 144/86; PULSE 89; O2SAT 97
== END 2016-10-07 15:00 | disposition home or self-care (01) ==
LOC: EDBD 12:02 → C.EDB 12:03
DX: R41.82 Altered mental status, unspecified (principal); N30.00 Acute cystitis without hematuria; I48.91 Unspecified atrial fibrillation; Z86.73 Personal history of transient ischemic attack (TIA), and cerebral infarction without residual deficits; E11.9 Type 2 diabetes mellitus without complications; N18.9 Chronic kidney disease, unspecified; E03.9 Hypothyroidism, unspecified

== ENCOUNTER → 2016-10-07 | Outpatient (CLI) | payer BC ==
[2016-10-07 08:36] LABS: BASO % 0.1 %; BASO ABS # 0.01 K/uL (0-0.2); COMPLETE YES; EOS % 0.1 %; HEMATOCRIT 35.5 % (37-47); IG% 0.2 %; LYMPH % 12.1 %; LYMPH ABS # 1.28 K/uL (1.2-3.4); MEAN CELL VOLUME 79.4 fL (80-100); MEAN CORPUSCULAR HEMOGLOBIN 25.1 pg (25-34); MEAN CORPUSCULAR HGB CONC 31.5 g/dl (32-36); MEAN PLATELET VOLUME 10.2 fL (7.4-10.4); MONO % 6.5 %; PLATELET COUNT 369 K/uL (130-400); RED BLOOD COUNT 4.47 M/uL (4.2-5.4); WHITE BLOOD COUNT 10.61 K/uL (4.8-10.8)
[2016-10-07 08:46] LABS: ALT/SGPT 13 U/L (12-78); BLOOD UREA NITROGEN 57 mg/dl (7-18); BUN/CREATININE RATIO 33.8 (10-20); CARBON DIOXIDE 31 mmol/L (21-32); CHLORIDE 97 mmol/L (98-107); GLUCOSE 125 mg/dl (70-99); POTASSIUM 3.6 mmol/L (3.5-5.1); SODIUM 138 mmol/L (136-145)
[2016-10-07 08:56] LABS: ALB/GLOB RATIO 0.6 (0.9-2); ALKALINE PHOSPHATASE 85 U/L (45-117); AST/SGOT 16 U/L (15-37); THYROID STIMULATING HORMONE 0.587 uIu/ml (0.300-4.500)
== END ==
LOC: C.LABCC 08:04
PROVIDERS: ATTEND Internal Medicine
DX: R41.82 Altered mental status, unspecified (principal); N18.9 Chronic kidney disease, unspecified; E03.9 Hypothyroidism, unspecified